=== PATIENT | male | born 1955 | race Caucasian/White ===

== ENCOUNTER 2016-04-04 21:17 | Inpatient (IN) | payer BC, OTHER ==
[2016-04-04] VITALS (18 sets, daily range): BP systolic 119–186; BP diastolic 71–123; PULSE 101–158; RESP 20–24; TEMP 98.4–98.6; O2SAT 91–96
[~2016-04-04] VITALS: Ht 172.7 cm; Wt 83.5 kg
[~2016-04-04 21:17] MED LIST: Z.0.NO CURRENT MEDS
[2016-04-04 21:43] LABS: AUTOMATED NEUTROPHIL # 9.1 TH/MM3 (1.8-7.7); BASOPHIL % 0.3 % (0.0-2.0); EOSINOPHIL # 0.1 TH/MM3 (0-0.4); EOSINOPHIL % 0.9 % (0.0-4.0); HEMO FLAGS DIFF FINAL; LYMPH % 22.5 % (9.0-44.0); LYMPHOCYTE # 2.9 TH/MM3 (1.0-4.8); MEAN CELL VOLUME 86.2 FL (80.0-100.0); MEAN CORPUSCULAR HEMOGLOBIN 29.4 PG (27.0-34.0); MEAN CORPUSCULAR HGB CONC 34.1 % (32.0-36.0); MONO % 6.9 % (0.0-8.0); NEUT % 69.4 % (16.0-70.0); PLATELET COUNT 216 TH/MM3 (150-450); RED BLOOD COUNT 5.22 MIL/MM3 (4.50-5.90); RED CELL DISTRIBUTION WIDTH 13.8 % (11.6-17.2)
[2016-04-04] MEDS ORDERED: SODIUM CHLORIDE 0.9% FLUSH 5 ML FLUSH IVF PRN (21:45)
[2016-04-04] MEDS ORDERED: ASPIRIN 81 MG CHEW TAB CHEW ONE (21:45)
[2016-04-04] MEDS ORDERED: NITROGLYCERIN 2% OINT 1 GM PACKET TOPICAL ONE (21:45)
[2016-04-04 22:00] LABS: APTT (PATIENT) 27.8 SEC (24.3-30.1); CHLORIDE 108 MEQ/L (98-107); INTERNATIONAL NORMALIZED RATIO 1.1 RATIO; POTASSIUM 3.5 MEQ/L (3.5-5.1); PROTHROMBIN TIME - PATIENT 12.5 SEC (9.8-11.6); SODIUM (NA) 143 MEQ/L (136-145)
[2016-04-04] MEDS ORDERED: FUROSEMIDE 40 MG/4 ML VIAL IV PUSH ONE ×2 (22:00→22:30)
[2016-04-04 22:03] LABS: ANION GAP 9 MEQ/L (5-15); BICARBONATE 25.9 MEQ/L (21.0-32.0); BLOOD UREA NITROGEN 20 MG/DL (7-18)
[2016-04-04 22:06] LABS: GLOMERULAR FILTRATION RATE 56 ML/MIN (>89)
[2016-04-04 22:09] LABS: CREATINE KINASE 131 U/L (39-308)
[2016-04-04] MEDS ORDERED: ENALAPRILAT 1.25 MG/ML VIAL IV PUSH ONE (22:15)
[2016-04-04 22:22] LABS: CKMB 2.7 NG/ML (0.5-3.6)
[2016-04-04] MEDS ORDERED: MORPHINE SULFATE 4 MG/ML INJ IV PUSH ONE (22:30)
[2016-04-04] MEDS ORDERED: NITROGLYCERIN-DEXTROSE INJ 250 ML IV SCH (22:30)
[2016-04-04] MEDS ORDERED: ONDANSETRON HCL 4 MG/2 ML VIAL IV PUSH ONE (22:30)
--- NOTE | 2016-04-04 22:30 | PD ---
HPI Chief Complaint: Respiratory Symptoms Time Seen by Provider: 21:34 Travel History International Travel<30 days: No Contact w/Intl Traveler<30days: No Traveled to known affect area: No History of Present Illness HPI 61-year-old male presents to the emergency department for complaint of 2 hours of shortness of breath. Patient reportedly noted approximate an hour before going to local urgent care that he had sudden onset shortness of breath. Patient would note that with standing upright shortness of breath of improvement was sitting or resting back or trying to lay down that his shortness of breath or worsen. No chest pain no referred neck jaw back shoulder arm pain no abdominal pain. No nausea no vomiting no diaphoresis. Patient recently returned within the past month from a cruise. There was no loss distance airplane flight patient was active during the cruise. Patient did have a respiratory illness will on the cruise was treated with antibiotic along with his at the same symptoms. Patient has had intermittent nighttime shortness of breath and respiratory issues recently. Patient denies any chronic medical conditions. Patient denies history of CAD, hypertension, dyslipidemia, diabetes, or tobaccoism. Patient denies any pain at this time, pain is 0/10 in intensity. Patient does feel short of breath. Patient sometimes feels like he has some soreness of his throat. Patient denies any new medications. Patient does have environmental allergen sensitivities and has been taking as needed Zyrtec. Patient has not noticed any lip tongue or throat swelling. There is been no change in his voice no stridor or hoarseness. No pruritus or urticaria. PFSH Past Medical History Cancer: Yes (Skin cancer L arm and head ) Tetanus Vaccination: > 5 Years Influenza Vaccination: No Social History Alcohol Use: Yes (1-2 beers weekly ) Tobacco Use: No Substance Use: No Allergies-Medications (Allergen,Severity, Reaction): Coded Allergies: No Known Allergies (Verified , 04/04/16) Reported Meds & Prescriptions Reported Meds & Active Scripts Active Physical Exam Narrative GENERAL: Well-developed well-nourished male and moderate respiratory distress able to complete full sentences and relate history. SKIN: Warm and dry. HEAD: Normocephalic. EYES: No scleral icterus. No injection or drainage. NECK: Supple, trachea midline. No JVD or lymphadenopathy. CARDIOVASCULAR: Increased Regular rate and rhythm without murmurs, gallops, or rubs. RESPIRATORY: Breath sounds equal bilaterally with basilar rales. No accessory muscle use. GASTROINTESTINAL: Abdomen soft, non-tender, nondistended. MUSCULOSKELETAL: No cyanosis, or edema. BACK: Nontender without obvious deformity. No CVA tenderness. Data Data Last Documented VS Vital Signs Date Time Temp Pulse Resp B/P Pulse Ox O2 Delivery O2 Flow Rate FiO2 04/05/16 00:10 104 20 111/73 94 Nasal Cannula 4 04/04/16 22:15 98.6 Orders Complete Blood Count With Diff (04/04/16 21:34) Basic Metabolic Panel (Bmp) (04/04/16 21:34) B-Type Natriuretic Peptide (04/04/16 21:34) D-Dimer (04/04/16 21:34) Act Partial Throm Time (Ptt) (04/04/16 21:34) Prothrombin Time / Inr (Pt) (04/04/16 21:34) Magnesium (Mg) (04/04/16 21:34) Ckmb (Isoenzyme) Profile (04/04/16 21:34) Troponin I (04/04/16 21:34) Iv Access Insert/Monitor (04/04/16 21:34) Electrocardiogram (04/04/16 21:34) Ecg Monitoring (04/04/16 21:34) Oximetry (04/04/16 21:34) Oxygen Administration (04/04/16 21:34) Sodium Chloride 0.9% Flush (Ns Flush) (04/04/16 21:45) Aspirin Chew (Aspirin Chew) (04/04/16 21:45) Nitroglycerin 2% Oint (Nitroglycerin 2% (04/04/16 21:45) Chest, Single Ap (04/04/16 ) Furosemide Inj (Lasix Inj) (04/04/16 22:00) CKMB (04/04/16 21:30) CKMB% (04/04/16 21:30) Enalaprilat Inj (Vasotec Inj) (04/04/16 22:15) Furosemide Inj (Lasix Inj) (04/04/16 22:30) Nitroglycerin-Dextrose Inj (Nitroglyceri (04/04/16 22:30) Morphine Inj (Morphine Inj) (04/04/16 22:30) Ondansetron Inj (Zofran Inj) (04/04/16 22:30) Diltiazem Inj (Cardizem Inj) (04/04/16 22:45) Diltiazem Inj (Cardizem Inj) (04/04/16 22:45) Blood Culture (04/04/16 22:37) Lactic Acid (04/04/16 22:37) Piperacil-Tazo 4.5 Gm Premix (Zosyn 4.5 (04/04/16 22:45) Sputum Culture And Gram Stain (04/04/16 22:48) Thyroid Stimulating Hormone (04/04/16 21:30) Ct Pulmonary Angiogram (04/05/16 ) Admit Order (Ed Use Only) (04/05/16 ) ^ Saline Lock (04/05/16 00:12) Resp Oxygen Mann C Titrat 1-4 L (04/05/16 ) ^ Notify Dr: Other (04/05/16 00:12) Sodium Chloride 0.9% Flush (Ns Flush) (04/05/16 09:00) Sodium Chloride 0.9% Flush (Ns Flush) (04/05/16 00:15) Labs Laboratory Tests Test 04/04/16 04/04/16 21:30 23:13 White Blood Count 13.0 TH/MM3 Red Blood Count 5.22 MIL/MM3 Hemoglobin 15.3 GM/DL Hematocrit 45.0 % Mean Corpuscular Volume 86.2 FL Mean Corpuscular Hemoglobin 29.4 PG Mean Corpuscular Hemoglobin 34.1 % Concent Red Cell Distribution Width 13.8 % Platelet Count 216 TH/MM3 Mean Platelet Volume 9.1 FL Neutrophils (%) (Auto) 69.4 % Lymphocytes (%) (Auto) 22.5 % Monocytes (%) (Auto) 6.9 % Eosinophils (%) (Auto) 0.9 % Basophils (%) (Auto) 0.3 % Neutrophils # (Auto) 9.1 TH/MM3 Lymphocytes # (Auto) 2.9 TH/MM3 Monocytes # (Auto) 0.9 TH/MM3 Eosinophils # (Auto) 0.1 TH/MM3 Basophils # (Auto) 0.0 TH/MM3 CBC Comment DIFF FINAL Differential Comment Prothrombin Time 12.5 SEC Prothromb Time International 1.1 RATIO Ratio Activated Partial 27.8 SEC Thromboplast Time D-Dimer Quantitative (PE/DVT) 1.38 MG/L FEU Sodium Level 143 MEQ/L Potassium Level 3.5 MEQ/L Chloride Level 108 MEQ/L Carbon Dioxide Level 25.9 MEQ/L Anion Gap 9 MEQ/L Blood Urea Nitrogen 20 MG/DL Creatinine 1.30 MG/DL Estimat Glomerular Filtration 56 ML/MIN Rate Random Glucose 122 MG/DL Calcium Level 8.3 MG/DL Magnesium Level 2.0 MG/DL Total Creatine Kinase 131 U/L Creatine Kinase MB 2.7 NG/ML Troponin I 0.02 NG/ML B-Type Natriuretic Peptide 646 PG/ML Thyroid Stimulating Hormone 2.980 uIU/ML 3rd Gen Lactic Acid Level 1.8 mmol/L [facility] Medical Decision Making Medical Screen Exam Complete: Yes Emergency Medical Condition: Yes Medical Record Reviewed: Yes Interpretation(s) EKG: sinus tachycardia Last Impressions CT Angiography 04/05/16 0000 Signed Impressions: Service Date/Time: Tuesday, April 05, 2016 00:34 - CONCLUSION: 1. No evidence of pulmonary embolism. 2. Scattered bilateral interstitial infiltrates in the mid to lower lung owen. 3. Small bilateral pleural effusions. 4. Gallstones in the gallbladder. No biliary tract obstruction. 5. 1.9 cm left adrenal mass. This most likely an adrenal adenoma. Bar Genao MD Chest X-Ray 04/04/16 0000 Signed Impressions: Service Date/Time: Monday, April 04, 2016 21:42 - CONCLUSION: 1. Mild congestive heart failure. Tony Puentes MD Differential Diagnosis dyspnea, chf, pulmonary edema, acs, mi, pneumonia, PE, htn-crisis Narrative Course Patient placed on cardiac care nurse IV access obtained EKG performed shows sinus tachycardia with regular rate and rhythm with P waves and no ST elevation or injury pattern change noted; supplemental oxygen administered Aspirin and Nitropaste administered; also ordered for administration of Lasix 40 mg as patient appears to be heart failure/pulmonary edema Patient remains hypertensive and ordered Vasotec 1.25 mg to be administered Patient remains hypertensive and dyspneic also diaphoretic therefore lab values pending patient administered IV nitroglycerin and additional Lasix 40 mg allergies no urine output after first 40 mg of Lasix administration; patient with posttussive sputum yellow purulent mucus. Patient remains afebrile no recent febrile illness or productive cough or respiratory illness however in view of yellow sputum for culture and lactic acid as well as Zosyn 4.5 g IVPB times one dose as recent antibiotic within the past 30 days Patient identified to have elevated d-dimer of 1.32 once patient status has improved will order CT pulmonary angiogram to exclude PE Cardiac enzymes resulted total CK and troponin I not elevated Nitropaste changed to IV nitroglycerin; patient to SVT of 156. Cardizem weight- based 0.25 mg/kg ordered with infusion Heart rate has decreased to 123 will give half dose 10 mg IV Cardizem no Cardizem infusion Patient clinically much improved and no longer complaining of shortness of breath but pressure and heart rate have normalized Patient's case discussed with on-call patternmaker pressure cast will accept patient for admission--per patternmaker pressure cast patient is to be admitted here as opposed to being transferred to [facility] Critical Care [facility] Aggregate critical care time was 45 minutes. Time to perform other separately billable procedures was not included in the critical care time. My time did not include minutes spent treating any other patients simultaneously or on activities that did not directly contribute to the patient's treatment. The services I provided to this patient were to treat and/or prevent clinically significant deterioration that could result in: Respiratory failure arrhythmia I provided critical care services requiring my management, as noted below: Chart data review, documentation time, medication orders and management, vital sign assessments/reviewing monitor data, ordering and reviewing lab tests, ordering and interpreting/reviewing x-rays and diagnostic studies, care of the patient and discussion of the patient with the admitting physicians. Physician Communication Physician Communication case discussed with Dr Rodrigues --will admit to his service to [facility] ICU Diagnosis Primary Impression: Pulmonary edema Additional Impression: Hypertensive CHF Admitting Information Admitting Physician Requests: Admit Melani Michelle MD Apr 04, 2016 22:30
[2016-04-04] MEDS ORDERED: PIPERACIL-TAZO 4.5 GM PREMIX 100 ML IV ONE (22:45)
[2016-04-04] MEDS ORDERED: DILTIAZEM INJ 125 MG in SODIUM CHLORIDE 0.9% INJ 100 ML IV SCH (22:45)
[2016-04-04] MEDS ORDERED: DILTIAZEM HCL 25 MG/5 ML VIAL IV PUSH ONE (22:45)
--- NOTE | 2016-04-04 22:53 | RADHPO ---
EXAM DATE/TIME: 04/04/2016 21:42 [facility] COMPARISON: No previous studies available for comparison. INDICATIONS : Short of breath. MEDICAL HISTORY : None. SURGICAL HISTORY : None. ENCOUNTER: Initial ACUITY: 1 day PAIN SCORE: 2/10 LOCATION: Bilateral chest FINDINGS: A single view of the chest demonstrates mild edema pattern. Cardiomegaly. Trace pleural fluid. No pne umothorax. CONCLUSION: 1. Mild congestive heart failure. Tony Puentes MD on April 04, 2016 at 22:51 Board Certified Radiologist. This report was verified electronically.
[2016-04-05] VITALS (24 sets, daily range): BP systolic 60–141; BP diastolic 42–89; PULSE 49–106; RESP 16–20; TEMP 97.7–98.7; O2SAT 92–100
[2016-04-05] MEDS ORDERED: SODIUM CHLORIDE 0.9% FLUSH 5 ML FLUSH IVF PRN (00:15)
[2016-04-05] MEDS ORDERED: IOHEXOL 350 MG/ML 10 ML VIAL (for RAD DIAG) IV ONE (00:46)
--- NOTE | 2016-04-05 01:00 | RADHPO ---
EXAM DATE/TIME: 04/05/2016 00:34 [facility] COMPARISON: No previous studies available for comparison. INDICATIONS : Evaluate for pulmonary embolism. Shortness of breath. IV CONTRAST: 75 cc Omnipaque 350 (iohexol) IV RADIATION DOSE: 19.63 CTDIvol (mGy) MEDICAL HISTORY : None SURGICAL HISTORY : None. ENCOUNTER: Initial ACUITY: 1 day PAIN SCALE: 0/10 LOCATION: chest TECHNIQUE: Volumetric scanning of the chest was performed using a pulmonary embolism protocol MIP images were re constructed. Using automated exposure control and adjustment of the mA and/or kV according to patien t size, radiation dose was kept as low as reasonably achievable to obtain optimal diagnostic quality images. FINDINGS: PULMONARY ARTERIES: No filling defects are seen in the pulmonary arteries through the segmental level. LUNGS: The upper lung owen are clear. However there are scattered interstitial infiltrates in the mid to l ower lung owen bilaterally. PLEURAE: There are small bilateral pleural effusions. MEDIASTINUM: There is good visualization of the great vessels of the middle mediastinum. No evidence of mediastin al or hilar adenopathy/mass. MUSCULOSKELETAL: Within normal limits for patient age. MISCELLANEOUS: There are gallstones in the gallbladder. There is a 1.9 x1.7 cm left adrenal mass. CONCLUSION: 1. No evidence of pulmonary embolism. 2. Scattered bilateral interstitial infiltrates in the mid to lower lung owen. 3. Small bilateral pleural effusions. 4. Gallstones in the gallbladder. No biliary tract obstruction. 5. 1.9 cm left adrenal mass. This most likely an adrenal adenoma. Bar Genao MD on April 05, 2016 at 0:55 Board Certified Radiologist. This report was verified electronically.
[2016-04-05 04:33] LABS: CREATINE KINASE 113 U/L (39-308)
[2016-04-05 04:46] LABS: CKMB 2.9 NG/ML (0.5-3.6)
[2016-04-05] MEDS ORDERED: POTASSIUM PHOSPHATE MONOBASIC 500 MG TAB PO PRN (06:45)
[2016-04-05] MEDS ORDERED: SODIUM PHOSPHATE INJ 30 MMOL in SODIUM CHLOR 0.9% 250 ML INJ 240 ML IV PRN (06:45)
[2016-04-05] MEDS ORDERED: RESP: ALBUTEROL 2.5 MG/IPRATROPIUM 0.5 MG NEB (PRN) INH (06:45)
[2016-04-05] MEDS ORDERED: MAGNESIUM SULFATE INJ 2 GM in SODIUM CHLORIDE 0.9% INJ 96 ML IV PRN (06:45)
[2016-04-05] MEDS ORDERED: MAGNESIUM SULFATE INJ 4 GM in SODIUM CHLORIDE 0.9% INJ 92 ML IV PRN (06:45)
[2016-04-05] MEDS ORDERED: MISCELLANEOUS NURSING INFORMATION XX SCH (06:45)
[2016-04-05] MEDS ORDERED: POTASSIUM CHLOR 40 MEQ PREMIX 100 ML IV PRN ×2 (06:45)
[2016-04-05] MEDS ORDERED: CHLORHEXIDINE GLUCONATE 2 % 1 PACK (2 CLOTHS) TOP PRN (06:45)
[2016-04-05] MEDS ORDERED: SODIUM CHLORIDE 0.9% FLUSH 5 ML FLUSH IV FLUSH PRN (06:45)
[2016-04-05] MEDS ORDERED: DEXTROSE 50% IN WATER 50 ML VIAL(D50) IV PUSH PRN (06:45)
[2016-04-05] MEDS ORDERED: POTASSIUM PHOSPHATE MONOBASIC 500 MG TAB PO/TUBE PRN (06:45)
[2016-04-05] MEDS ORDERED: POTASSIUM CL 40 MEQ/30 ML LIQ UDC PO/TUBE PRN ×2 (06:45)
[2016-04-05] MEDS ORDERED: ONDANSETRON HCL 4 MG/2 ML VIAL IV PRN (06:45)
[2016-04-05] MEDS ORDERED: MAGNESIUM OXIDE 400 MG TAB PO PRN (06:45)
[2016-04-05] MEDS ORDERED: POTASSIUM CHLOR 20 MEQ PREMIX 100 ML IV PRN ×2 (06:45)
[2016-04-05] MEDS ORDERED: POTASSIUM PHOSPHATE INJ 30 MMOL in SODIUM CHLOR 0.9% 250 ML INJ 250 ML IV PRN (06:45)
[2016-04-05] MEDS: INSULIN NovoLIN REGULAR SUPPLEMENTAL SCALE SQ SCH ×2 (07:00→11:00)
--- NOTE | 2016-04-05 07:26 | HHI.HP ---
HPI Service Critical Care Medicine Primary Care Physician Non-Staff Admission Diagnosis chf; htn Diagnosis: Chief Complaint: shortness of breath Travel History International Travel<30 Days: No Contact w/Intl Traveler <30 Da: No Traveled to Known Affected Are: No History of Present Illness This is a 61yM with no prior past medical history who presented to the [place] emergency department with acute on subacute shortness of breath. He reports that over the last few weeks he has been increasingly dyspneic, with a combination last night where he was significantly dyspneic. He has a history back in January of being on a month-long cruise and he and his both having a viral type syndrome with cough, fever, chills. Otherwise, prior to this subacute event, he is very healthy and active. He sees a Dr. regularly for checkups and has had no prior past medical history including no hypertension or hyperlipidemia. He denies nausea, vomiting, constipation, diarrhea, chest pain. Denies flushing, night sweats. He does endorse in the subacute time orthopnea, PND symptoms. Denies lower extremity swelling. In the emergency department, he had an elevated BNP 600, wbc 10k, significantly hypoxic on room air. also significantly hypertensive requiring nitro drip initially, which is now off. Because of his hypoxia, a CTA chest was ordered which was negative for acute PE, but did demonstrate pulmonary edema. He was given lasix iv with > 2L diuresis and is now on 2L NC on my evaluation, off nitroglycerine. Review of Systems Constitutional: DENIES: Diaphoretic episodes, Fatigue, Fever, Weight gain, Weight loss, Chills, Dizziness, Change in appetite, Night Sweats Endocrine: DENIES: Heat/cold intolerance, Polydipsia, Polyuria, Polyphagia Eyes: DENIES: Blurred vision, Diplopia, Eye inflammation, Eye pain, Vision loss , Photosensitivity, Double Vision Ears, nose, mouth, throat: DENIES: Tinnitus, Hearing loss, Vertigo, Nasal discharge, Oral lesions, Throat pain, Hoarseness, Ear Pain, Running Nose, Epistaxis, Sinus Pain, Toothache, Odynophagia Respiratory: COMPLAINS OF: Shortness of breath, DENIES: Apneas, Cough, Snoring , Wheezing, Hemoptysis, Sputum production Cardiovascular: COMPLAINS OF: Syncope, Dyspnea on Exertion, PND, Orthopnea, DENIES: Chest pain, Palpitations, Lower Extremity Edema, Claudication Gastrointestinal: DENIES: Abdominal pain, Black stools, Bloody stools, Constipation, Diarrhea, Nausea, Vomiting, Difficulty Swallowing, Anorexia Genitourinary: DENIES: Sexual dysfunction, Urinary frequency, Urinary incontinence, Urgency, Hematuria, Dysuria, Nocturia, Penile Discharge, Testicular Pain, Testicular Swelling Musculoskeletal: DENIES: Joint pain, Muscle aches, Stiffness, Joint Swelling, Back pain, Neck pain Integumentary: DENIES: Abnormal pigmentation, Nail changes, Pruritus, Rash Hematologic/lymphatic: DENIES: Bruising, Lymphadenopathy Immunologic/allergic: DENIES: Eczema, Urticaria Neurologic: DENIES: Abnormal gait, Headache, Localized weakness, Paresthesias, Seizures, Speech Problems, Tremor, Poor Balance Psychiatric: DENIES: Anxiety, Confusion, Mood changes, Depression, Hallucinations, Agitation, Suicidal Ideation, Homicidal Ideation, Delusions Past Family Social History Allergies: Coded Allergies: No Known Allergies (Verified , 04/04/16) Past Medical History None. Specifically no past medical history of hypertension, hyperlipidemia, coronary artery disease Past Surgical History Bilateral carpal tunnel surgery back in 1970s Reported Medications None. Active Ordered Medications See MAR Family History No family history of coronary artery disease or heart failure Social History 1-2 drinks a week. Never smoked. Denies any other drugs. Physical Exam Vital Signs Vital Signs Date Time Temp Pulse Resp B/P Pulse Ox O2 Delivery O2 Flow Rate FiO2 04/05/16 05:45 99 20 128/81 100 Nasal Cannula 3 04/05/16 05:30 18 97 Nasal Cannula 3 04/05/16 04:45 97.7 86 18 115/82 97 Nasal Cannula 4 04/05/16 03:45 92 20 137/84 98 Nasal Cannula 4 04/05/16 03:15 90 20 136/89 98 Nasal Cannula 4 04/05/16 02:15 92 20 141/87 98 Nasal Cannula 4 04/05/16 01:30 20 98 Nasal Cannula 04/05/16 01:15 98.4 98 20 137/89 98 Nasal Cannula 4 04/05/16 01:08 96 Nasal Cannula 4.00 04/05/16 00:45 106 20 139/73 96 Nasal Cannula 4 04/05/16 00:30 104 20 117/79 94 Nasal Cannula 4 04/05/16 00:10 104 20 111/73 94 Nasal Cannula 4 04/04/16 23:55 101 20 119/71 94 Nasal Cannula 4 04/04/16 23:45 106 20 131/75 94 Nasal Cannula 4 04/04/16 23:30 108 20 135/81 94 Nasal Cannula 4 04/04/16 23:15 108 22 152/87 94 Nasal Cannula 4 04/04/16 23:07 115 22 153/94 94 Nasal Cannula 4 04/04/16 23:02 115 22 186/102 94 Nasal Cannula 4 04/04/16 22:57 120 22 180/102 95 Nasal Cannula 4 04/04/16 22:52 126 22 168/108 94 Nasal Cannula 4 04/04/16 22:45 126 22 167/106 94 Nasal Cannula 4 04/04/16 22:40 126 24 151/114 94 Nasal Cannula 4 04/04/16 22:38 128 24 174/112 95 Nasal Cannula 4 04/04/16 22:30 158 22 173/117 94 Nasal Cannula 4 04/04/16 22:20 130 22 166/123 95 Nasal Cannula 4 04/04/16 22:15 98.6 126 24 173/114 95 Nasal Cannula 4 04/04/16 21:55 125 24 169/116 96 Nasal Cannula 4 04/04/16 21:47 124 20 163/111 96 Nasal Cannula 4 04/04/16 21:40 93 Nasal Cannula 4 04/04/16 21:35 20 93 Nasal Cannula 2 04/04/16 21:30 129 20 176/114 93 Nasal Cannula 2 181/121 04/04/16 21:30 93 Nasal Cannula 2 04/04/16 21:25 98.4 128 20 163/108 91 04/04/16 21:25 91 Nasal Cannula 2 Physical Exam GENERAL: Middle-aged male, lying in bed, no acute distress HEENT: Normocephalic, atraumatic. Pupils equally round and reactive. Mucous membranes are moist. NECK: Trachea is midline. JVD up to the mid neck. CHEST: Unlabored respirations. Equal chest rise. Clear to auscultation. CARDIOVASCULAR: Normal rate, regular rhythm. Laterally displaced PMI. S1, S2 with an S3. No appreciable murmurs. ABDOMEN: Soft, nontender, nondistended. No guarding. MUSCULOSKELETAL: Distal pulses 2+. No peripheral edema. NEUROLOGICAL: RASS 0. CAM -. GCS 15. Follows commands in all 4 extremities. No gross focal motor or sensory deficits. Laboratory Laboratory Tests Test 04/04/16 04/04/16 04/05/16 21:30 23:13 04:00 White Blood Count 13.0 Red Blood Count 5.22 Hemoglobin 15.3 Hematocrit 45.0 Mean Corpuscular Volume 86.2 Mean Corpuscular Hemoglobin 29.4 Mean Corpuscular Hemoglobin 34.1 Concent Red Cell Distribution Width 13.8 Platelet Count 216 Mean Platelet Volume 9.1 Neutrophils (%) (Auto) 69.4 Lymphocytes (%) (Auto) 22.5 Monocytes (%) (Auto) 6.9 Eosinophils (%) (Auto) 0.9 Basophils (%) (Auto) 0.3 Neutrophils # (Auto) 9.1 Lymphocytes # (Auto) 2.9 Monocytes # (Auto) 0.9 Eosinophils # (Auto) 0.1 Basophils # (Auto) 0.0 CBC Comment DIFF FINAL Differential Comment Prothrombin Time 12.5 Prothromb Time International 1.1 Ratio Activated Partial 27.8 Thromboplast Time D-Dimer Quantitative (PE/DVT) 1.38 Sodium Level 143 Potassium Level 3.5 Chloride Level 108 Carbon Dioxide Level 25.9 Anion Gap 9 Blood Urea Nitrogen 20 Creatinine 1.30 Estimat Glomerular Filtration 56 Rate Random Glucose 122 Calcium Level 8.3 Magnesium Level 2.0 Total Creatine Kinase 131 113 Creatine Kinase MB 2.7 2.9 Troponin I 0.02 0.02 B-Type Natriuretic Peptide 646 Thyroid Stimulating Hormone 2.980 3rd Gen Lactic Acid Level 1.8 Date/Time Procedure Status Source Growth 04/04/16 23:18 Aerobic Blood Culture Received Blood Peripheral Pending 04/04/16 23:18 Anaerobic Blood Culture Received Blood Peripheral Pending 04/04/16 22:59 Gram Stain Received Sputum Expectorated Sputum Pending 04/04/16 22:59 Sputum Culture Received Sputum Expectorated Sputum Pending Result Diagram: 04/04/16212904/04/162129 Imaging I performed a bedside critical care ultrasound which demonstrated severe global LV systolic dysfunction without regional wall motion abnormalities. His LV cavity was also dilated and to my estimation about 5.8 cm. Grossly preserved RV function. No pericardial effusion. No clinically significant valvular lesions. IVC was 2.8 cm without respiratory variation. Assessment and Plan Assessment and Plan Assessment: This is a 61-year-old male previously very healthy without any past medical history who presents with what appears to be a new onset cardiomyopathy , and by history could be viral in origin. I discussed case with Dr. Lu in cardiology. We will admit the patient to [facility] for further workup and evaluation. Plan: 1. Acute LV systolic congestive heart failure exacerbation -- Lasix 40mg iv bid -- goal 2L negative for 24h. 2. New-onset Cardiomyopathy -- possibly viral by history -- also has CT evidence of possible adrenal adenoma -- cardiology consulted -- start carvedilol 6.25mg po q12h -- start lisinopril 10mg po daily Work-up: -- formal 2d echo: pending. -- LHC/RHC: pending -- HIV: pending -- iron studies: pending -- AMARIS screen: pending -- 24h urine metanephrines: pending -- urine drug screen: pending -- TSH 2.98, free t4: pending -- Thiamine level: pending -- carnitine: pending 3. Hypertension -- carvedilol 6.25mg po q12h -- lisinopril 10mg po daily -- goal sbp < 160 initially. --Heart healthy diet as tolerated, NPO at midnight for possible procedures --senna/colace for bowel regimen. --SCDs, Lovenox 40 sq q24h for DVT prophylaxis --no indication for GI prophylaxis --telemetry. Dispo: transfer to [facility] for work-up of new cardiomyopathy. will admit to [facility]. no need for intensive care at the moment. will consult hospitalist services to assist. Code Status Full Code Discussed Condition With Dr. Aly Obregon,Mayo Uriarte MD Apr 05, 2016 07:26
[2016-04-05] MEDS: FUROSEMIDE 20 MG/2 ML VIAL IV PUSH SCH ×2 (08:42→17:57)
[2016-04-05] MEDS: LISINOPRIL 10 MG TAB PO SCH (08:43)
[2016-04-05] MEDS: SODIUM CHLORIDE 0.9% FLUSH 5 ML FLUSH IV FLUSH SCH ×2 (08:43→20:26)
[2016-04-05] MEDS: DOCUSATE SODIUM 50 MG/SENNA 8.6 MG TAB PO SCH ×2 (08:43→20:26)
[2016-04-05] MEDS: CARVEDILOL 6.25 MG TAB PO SCH ×2 (08:43→20:26)
[2016-04-05] MEDS: ENOXAPARIN SODIUM 40 MG/0.4 ML SYRINGE SQ SCH (08:43)
[2016-04-05] MEDS: SODIUM CHLORIDE 0.9% FLUSH 5 ML FLUSH IVF SCH ×2 (09:00→20:26)
[2016-04-05 09:19] LABS: ALKALINE PHOSPHATASE 82 U/L (45-117); ALT (GPT) 45 U/L (12-78); ANION GAP 9 MEQ/L (5-15); AST (GOT) 22 U/L (15-37); BICARBONATE 27.8 MEQ/L (21.0-32.0); BLOOD UREA NITROGEN 22 MG/DL (7-18); CHLORIDE 106 MEQ/L (98-107); GLOMERULAR FILTRATION RATE 61 ML/MIN (>89); INDIRECT BILIRUBIN 1.2 MG/DL (0.0-0.8); SODIUM (NA) 143 MEQ/L (136-145); TOTAL BILIRUBIN ADULT 1.5 MG/DL (0.2-1.0)
[2016-04-05 09:22] LABS: POTASSIUM 2.9 MEQ/L (3.5-5.1)
[2016-04-05 10:01] LABS: AMPHETAMINE, URINE NEG (NEG); BARBITURATES, URINE NEG (NEG)
[2016-04-05 10:02] LABS: COCAINE, URINE NEG (NEG)
[2016-04-05] MEDS ORDERED: DOPamine INJ PREMIX 500 ML IV SCH (10:30)
[2016-04-05] MEDS ORDERED: TERBUTALINE INJ 1 MG/ML AMP SQ PRN (10:30)
[2016-04-05] MEDS ORDERED: POTASSIUM CHLOR 20 MEQ PREMIX 100 ML IV ONE (11:00)
[2016-04-05] MEDS ORDERED: POTASSIUM CHLORIDE 20 MEQ CONTROLLED RELEASE TAB PO ONE (11:00)
[2016-04-05 13:39] LABS: FERRITIN 134 NG/ML (26-388); FREE T4 1.36 NG/DL (0.76-1.46); HDL CHOLESTEROL 48.6 MG/DL (40.0-60.0); LDL CHOLESTEROL 125 MG/DL (0-99); TRANSFERRIN IRON PROFILE 237 MG/DL (200-360)
--- NOTE | 2016-04-05 15:48 | EC ---
Study Study Date:04/05/2016 STUDY CONCLUSIONS SUMMARY - Left ventricle: The cavity size was normal. Wall thickness was normal. Systolic function was severely reduced. The estimated ejection fraction was in the range of 20% to 25%. Diffuse hypokinesis. - Mitral valve: Severe regurgitation. - Tricuspid valve: Mild regurgitation. - Pulmonary arteries: Systolic pressure was moderately increased. PA peak pressure: 52mm Hg (S). - Pericardium, extracardiac: There is a small pericardial effusion. If LV function is below 40, please consider prescribing an ACEI or ARB or document rationale for non-use. PROCEDURE DATA STUDY STATUS: Elective. Procedure: Transthoracic echocardiography. Image quality was fair. Scanning was performed from the parasternal, apical, and subcostal acoustic windows. Study completion: The patient tolerated the procedure well. Transthoracic echocardiography. M-mode, complete 2D, complete spectral Doppler, and color Doppler. Patient status: Inpatient. CARDIAC ANATOMY LEFT VENTRICLE: The cavity size was normal. Wall thickness was normal. Systolic function was severely reduced. The estimated ejection fraction was in the range of 20% to 25%. Diffuse hypokinesis. AORTIC VALVE: Trileaflet; normal thickness leaflets. Doppler: Transvalvular velocity was within the normal range. There was no stenosis. No regurgitation. AORTA: Aortic root: The aortic root was normal in size. MITRAL VALVE: Structurally normal valve. Doppler: Transvalvular velocity was within the normal range. There was no evidence for stenosis. Severe regurgitation. Valve area by pressure half-time: 3.19cm^2. LEFT ATRIUM: The atrium was at the upper limits of normal in size. RIGHT VENTRICLE: The cavity size was normal. Wall thickness was normal. PULMONIC VALVE: Doppler: Transvalvular velocity was within the normal range. There was no evidence for stenosis. No regurgitation. TRICUSPID VALVE: Structurally normal valve. Doppler: Transvalvular velocity was within the normal range. Mild regurgitation. PULMONARY ARTERY: The main pulmonary artery was normal-sized. Systolic pressure was moderately increased. RIGHT ATRIUM: The atrium was normal in size. PERICARDIUM: There is a small pericardial effusion. SYSTEMIC VEINS: Inferior vena cava: The vessel was normal in size. BASIC MEASUREMENTS ADULT Normal Left ventricle LV internal dimension, ED, chordal level, *55 mm 43-52 PLAX LV internal dimension, ES, chordal level, *49.2 mm 23-38 PLAX Fractional shortening, chordal level, PLAX *11 % >29 LV posterior wall thickness, ED 11.2 mm IVS/LVPW ratio, ED 0.85 <1.3 Ventricular septum Septal thickness, ED 9.53 mm Aortic valve Leaflet separation 18 mm 15-26 Right ventricle RV internal dimension, ED, PLAX 31.9 mm 19-38 BASIC MEASUREMENTS ADULT Normal Aortic valve Leaflet separation 18 mm 15-26 Aorta Root diameter, ED 32 mm 20-37 Left atrium Anterior-posterior dimension, ES *46 mm 19-40 LA/aortic root ratio 1.44 DOPPLER MEASUREMENTS ADULT Normal Main pulmonary artery Pressure, S *52 mm Hg =30 Mitral valve Pressure half-time 69 ms Valve area, pressure half-time 3.19 cm^2 Tricuspid valve Regurgitant peak velocity 323 cm/s Peak RV-RA gradient, S 42 mm Hg Maximal regurgitant velocity 323 cm/s Systemic veins Estimated CVP 10 mm Hg Right ventricle RV pressure, S *52 mm Hg <30 LEGEND: Mean values are shown as u=mean value. Asterisk (*) javier values outside specified normal range. Prepared and signed by Roula Chaudhari [id number]
--- NOTE | 2016-04-05 16:50 | EKG ---
Date Performed: 04/04/2016 Time Performed: 21:25:22 PTAGE: 61 years EKG: Sinus tachycardia Possible left atrial abnormality Poor R wave progression - probable fartun l variant Lateral ST-T changes are nonspecific Borderline ECG NO PREVIOUS TRACING DOCTOR: Roula Chaudhari Interpretating Date/Time 04/05/2016 16:48:51
--- NOTE | 2016-04-05 16:53 | EKG ---
Date Performed: 04/04/2016 Time Performed: 23:25:50 PTAGE: 61 years EKG: Regular supraventricular tachycardia Possible inferior infarct - age undetermined Lateral T wave changes may be due to myocardial ischemia Significant baseline artifact. Precluding any further any further interpretation. Repeat EKG suggested. Abnormal ECG PREVIOUS TRACING : 04/04/2016 21.25.22 DOCTOR: Roula Chaudhari Interpretating Date/Time 04/05/2016 16:51:36
[2016-04-06] VITALS (23 sets, daily range): BP systolic 89–124; BP diastolic 57–85; PULSE 1–98; RESP 13–22; TEMP 97.5–98.6; O2SAT 96–99
[2016-04-06] MEDS: CHLORHEXIDINE GLUCONATE 2 % 1 PACK (2 CLOTHS) TOP SCH (04:00)
[2016-04-06 05:22] LABS: HEMATOCRIT 39.6 % (39.0-51.0); MEAN CELL VOLUME 86.3 FL (80.0-100.0); MEAN CORPUSCULAR HEMOGLOBIN 29.8 PG (27.0-34.0); MEAN CORPUSCULAR HGB CONC 34.6 % (32.0-36.0); PLATELET COUNT 184 TH/MM3 (150-450); RED CELL DISTRIBUTION WIDTH 14.5 % (11.6-17.2); REVIEW FLAG FINAL
--- NOTE | 2016-04-06 05:48 | EKG ---
Date Performed: 04/05/2016 Time Performed: 10:18:32 PTAGE: 61 years EKG: BASELINE ARTIFACT PRESENT. Sinus rhythm with borderline 1st degree A-V block. Prolonged QT interval Possible anterior infarct - age undeterm ined Nonspecific ST-T wave changes Low QRS voltages in limb leads Abnormal ECG COMPARED TO PRIOR ELEC TROCARDIOGRAM, Both EKGs have significant artifact although it appears that the rate has slowed and S T-T wave changes have worsened. PREVIOUS TRACING : 04/04/2016 23.25 DOCTOR: Ab Kaba Interpretating Date/Time 04/06/2016 05:47:02
[2016-04-06 05:49] LABS: BICARBONATE 29.6 MEQ/L (21.0-32.0); POTASSIUM 3.5 MEQ/L (3.5-5.1)
[2016-04-06] MEDS: ENOXAPARIN SODIUM 40 MG/0.4 ML SYRINGE SQ SCH (08:00)
[2016-04-06] MEDS: DOCUSATE SODIUM 50 MG/SENNA 8.6 MG TAB PO SCH ×2 (09:00→20:50)
[2016-04-06] MEDS: SODIUM CHLORIDE 0.9% FLUSH 5 ML FLUSH IVF SCH ×2 (09:00→20:50)
--- NOTE | 2016-04-06 10:18 | HHI.PR ---
Subjective Remarks Patient seen in follow-up for acute systolic congestive heart failure, cardiomyopathy of unknown etiology, hypertension Patient reports that he is feeling well. He denies chest pain, no increase in shortness of breath, Awaiting heart catheterization. Objective Vitals Vital Signs Date Time Temp Pulse Resp B/P Pulse Ox O2 Delivery O2 Flow Rate FiO2 04/06/16 06:00 77 04/06/16 04:00 98.4 79 14 89/57 97 04/06/16 04:00 79 04/06/16 02:00 78 04/06/16 00:00 79 04/06/16 00:00 98.0 76 13 107/70 97 04/05/16 22:00 90 04/05/16 20:00 98.1 97 17 116/74 96 04/05/16 20:00 95 04/05/16 19:02 96 21 04/05/16 18:00 93 04/05/16 16:00 98.7 93 16 116/78 97 04/05/16 16:00 93 04/05/16 14:00 98 04/05/16 11:51 92 18 111/76 98 Nasal Cannula 3 04/05/16 10:56 81 18 96/68 96 Nasal Cannula 3 04/05/16 10:28 86 18 97/64 95 Nasal Cannula 3 04/05/16 10:17 49 18 60/42 92 Nasal Cannula 3 I/O 04/05/16 04/05/16 04/05/16 04/06/16 04/06/16 04/06/16 07:00 15:00 23:00 07:00 15:00 23:00 Intake Total 100 ml 0 ml 515 ml Output Total 2475 ml 750 ml 710 ml Balance -2375 ml -750 ml -195 ml Intake Oral 0 ml 500 ml IV Total 100 ml 15 ml Output Urine Total 2475 ml 750 ml 710 ml # Voids 4 1 # Bowel Movements 0 0 Result Diagram: 04/06/16 0431 04/06/16 [address] Angiography 04/05/16 0000 Signed Impressions: Service Date/Time: Tuesday, April 05, 2016 00:34 - CONCLUSION: 1. No evidence of pulmonary embolism. 2. Scattered bilateral interstitial infiltrates in the mid to lower lung owen. 3. Small bilateral pleural effusions. 4. Gallstones in the gallbladder. No biliary tract obstruction. 5. 1.9 cm left adrenal mass. This most likely an adrenal adenoma. Bar Genao MD Chest X-Ray 04/04/16 0000 Signed Impressions: Service Date/Time: Monday, April 04, 2016 21:42 - CONCLUSION: 1. Mild congestive heart failure. Tony Puentes MD Objective Remarks GENERAL: This is a well-nourished, well-developed patient, in no apparent distress. CARDIOVASCULAR: Normal rate and regular rhythm without murmurs, gallops, or rubs. RESPIRATORY: Good respiratory efforts. Breath sounds equal and clear to auscultation bilaterally. GASTROINTESTINAL: Abdomen soft, non-tender, non-distended. Normal active bowel sounds MUSCULOSKELETAL: Extremities without cyanosis, or edema. NEURO: Alert & Oriented x4 to person, place, time, situation. Moves all ext x4 PSYCH: Appropriate mood and affect. A/P Assessment and Plan 61-year-old male admitted with acute systolic congestive heart failure. Cardiomyopathy of unknown etiology. Pulmonary edema on admission. Acute systolic congestive heart failure: Patient has no known history of heart failure. He has been doing well until this hospitalization. 2-D echocardiogram shows LVEF of 20-25%. Severe mitral regurgitation, mild tricuspid regurgitation. There is increased pulmonary artery pressure and a mild pericardial effusion. -- Appreciate cardiology following. Continue Lasix 20mg iv bid. Consider transitioning to PO in AM. --Monitor I/O - He is responding well to the diuretics. New-onset Cardiomyopathy: Etiology unknown. No known history of CAD. Recent history of viral illness. Adrenal adenoma on CT - Cardiology following. Plan for heart catheterization today. -Patient was started on carvedilol 6.25mg po q12h Patient was started on lisinopril 10mg po daily Pending workup include: -- HIV: pending -- iron studies: pending -- AMARIS screen: pending -- 24h urine metanephrines: pending -- urine drug screen: Negative -- TSH 2.98, free t4: Normal -- Thiamine level: pending -- carnitine: pending Possible adrenal adenoma: - Workup as above. Outpatient follow up if workup unrevealing. Hypertension - Continue carvedilol 6.25mg po q12h, lisinopril 10mg po daily - Heart healthy diet DVT prophylaxis: SCDs, Lovenox 40 mg sq daily Discharge Planning Can transfer to [facility] after heart cath if stable. Abeba Stevens MD Apr 06, 2016 10:18
[2016-04-06] MEDS: FUROSEMIDE 20 MG/2 ML VIAL IV PUSH SCH ×2 (11:37→18:19)
[2016-04-06] MEDS: LISINOPRIL 10 MG TAB PO SCH (11:38)
[2016-04-06] MEDS: CARVEDILOL 6.25 MG TAB PO SCH ×2 (11:38→20:50)
[2016-04-06] MEDS: SODIUM CHLORIDE 0.9% FLUSH 5 ML FLUSH IV FLUSH SCH (11:38)
[2016-04-06] MEDS ORDERED: HEPARIN-NS/PF INJ 500 ML ONE (12:14)
[2016-04-06] MEDS ORDERED: VERAPAMIL HCL 5 MG/2 ML VIAL ONE (12:17)
[2016-04-06] MEDS ORDERED: HEPARIN SODIUM - IV 10,000 UNITS/10 ML VIAL ONE (12:17)
[2016-04-06] MEDS ORDERED: MIDAZOLAM HCL 2 MG/2 ML VIAL ONE (12:34)
[2016-04-06] MEDS ORDERED: VERAPAMIL HCL 5 MG/2 ML VIAL IV ONE (12:55)
[2016-04-06] MEDS ORDERED: NITROGLYCERIN 1000 MCG/5 ML VIAL IV ONE (12:55)
[2016-04-06] MEDS ORDERED: HEPARIN SODIUM - IV 10,000 UNITS/10 ML VIAL IV ONE (12:55)
[2016-04-06] MEDS ORDERED: MIDAZOLAM HCL 2 MG/2 ML VIAL IV ONE (13:00)
[2016-04-06] MEDS ORDERED: IOHEXOL 350 MG/ML 100 ML BTL (for Cath Lab) OTHER ONE (14:00)
[2016-04-06] MEDS ORDERED: SODIUM CHLORIDE 0.9% FLUSH 5 ML FLUSH IVF PRN (14:30)
[2016-04-06] MEDS ORDERED: MISC INFORMATION XX ONE (14:30)
--- NOTE | 2016-04-06 15:45 | MA ---
cc: BOOGIE RUIZ DO DATE: 04/06/2016 PROCEDURE Left heart catheterization, right heart catheterization, coronary angiogram, US guided venous access PREPROCEDURE DIAGNOSIS New onset acute heart failure, ejection fraction 20-25% POSTPROCEDURE DIAGNOSIS Nonischemic cardiomyopathy, ejection fraction 20-25%. MEDICATIONS 1. Verapamil 2.5 mg. 2. Heparin 3400 units. 3. Nitro 200 mcg. 4. Versed 1 mg. 5. Fentanyl 50 mcg. CONTRAST USED 70 ccs. FLUOROSCOPY 3.5 minutes. ESTIMATED BLOOD LOSS 10 ccs. PROCEDURAL SUMMARY Bernard Shankar is a pleasant 61-year-old male who originally presented to [facility] Emergency Room due to new onset shortness of breath. He was found to have new onset acute heart failure with an ejection fraction of 20-25%. Because of this new finding it was felt that significant coronary artery disease should be ruled out as well as pressure and sats of the right heart should be done. Risks, benefits and alternatives were explained to the patient and he consented as such. He was brought to the lab and prepped in the usual sterile fashion. Right radial artery was accessed using a modified Seldinger technique and placement of a 5/6 slender sheath. The right brachial vein was then accessed using a ultrasound guidance and a modified Seldinger technique. Placement of a 5/6 slender sheath. Both sheaths were easily aspirated and flushed. New Franken-Valeriano catheter was then advanced to a wedge position. Pressure and oxygen saturations were recorded in the usual fashion with hemodynamics below. New Franken-Valeriano catheter was then removed. The JR-4 was then advanced to the ascending aorta over a J-wire. This was used to cross the aortic valve into the left ventricle and pressures were recorded. JR-4 was then pulled back across the aortic valve showing no significant gradient of aortic stenosis. JR-4 catheter was then used for selective angiography of the right coronary artery which shows a 10-20% lesion in the mid section, and a 30% in the second posterior lateral branch. JR-4 was then exchanged for a JL-3.5. This was used for selective angiography of the left coronary system which shows a left main which appears normal in size with no significant disease. Left main bifurcates into an LAD and circumflex. LAD has a 20-30% lesion after the first diagonal. It does taper down distally and appears to be somewhat of a rudimentary artery versus the diagonal which covers a large portion of the anterior lateral wall. The circumflex gives off one major obtuse marginal and has no significant disease throughout. JL-3.5 was then removed over a J-wire. A TR band was placed across the radial sheath with 8 ccs of air and removal of the radial sheath. ACT was checked which was 173 and so the right brachial line was pulled and pressure held. The patient left the catheterization lab cardiovascularly stable. HEMODYNAMICS RV 33/9, RVEDP 11. PA 29/16, mean 22. Wedge 18. Cardiac output 4.9. Cardiac index 2.4. LV 101/18 with an LVEDP of 20. IMPRESSION 1. New onset acute heart failure, nonischemic cardiomyopathy with an ejection fraction of 20-25%. 2. 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 RECOMMENDATIONS 1. 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 2. He will be treated medically including starting beta blockade, NANCY inhibitors, aspirin and statin. 3. We will discuss with him the consideration of a Life-Vest due to his lowered ejection fraction. 4. He will need a repeat echo in 3 months with close follow up with cardiology. 5. If repeat echo shows a decrease in his ejection fraction consideration of ICD placement. Thank you for allowing me to see Bernard Shankar. If there are any questions please do not hesitate to call. Boogie Ruiz DO VGP/TLL /12:17 PM /3:29 PM .2 MTDSharad
[2016-04-06] MEDS: ASPIRIN 81 MG CHEW TAB CHEW SCH (15:51)
[2016-04-07] VITALS (8 sets, daily range): BP systolic 96–111; BP diastolic 62–86; PULSE 73–96; RESP 18; TEMP 97.4–98; O2SAT 94–98
[2016-04-07] MEDS: CHLORHEXIDINE GLUCONATE 2 % 1 PACK (2 CLOTHS) TOP SCH (03:28)
[2016-04-07 05:12] LABS: HEMATOCRIT 40.8 % (39.0-51.0); MEAN CELL VOLUME 86.3 FL (80.0-100.0); MEAN CORPUSCULAR HEMOGLOBIN 29.6 PG (27.0-34.0); MEAN CORPUSCULAR HGB CONC 34.3 % (32.0-36.0); PLATELET COUNT 198 TH/MM3 (150-450); RED BLOOD COUNT 4.74 MIL/MM3 (4.50-5.90); RED CELL DISTRIBUTION WIDTH 14.2 % (11.6-17.2); REVIEW FLAG FINAL
[2016-04-07 05:40] LABS: BICARBONATE 30.5 MEQ/L (21.0-32.0); POTASSIUM 3.2 MEQ/L (3.5-5.1)
--- NOTE | 2016-04-07 06:33 | MB ---
cc: JERRY RUIZ DO DATE OF CONSULTATION April 06, 2016 REASON FOR CONSULTATION Acute systolic heart failure. HISTORY OF PRESENT ILLNESS Bernard Shankar is a pleasant 61-year-old male who originally presented to the emergency room at [place] with subacute shortness of breath. He originally had a viral illness a few months ago and at that time noticed some shortness of breath. After getting over the viral illness he felt better. Then in February he and his were on a month-long cruise in the [facility] and they both came down with a viral illness. He started noticing the shortness of breath during this. He seemed to get over it once again. Over the past week he started noticing that he was more and more short of breath. He would noticed that while sitting or lying he would get extremely short of breath and would have to stand up. The day before coming in, he felt so extremely short of breath that he felt that he needed to come to the emergency room. On arrival to [place] he was found to have an elevated BNP and significantly hypoxic on room air. Bedside echo was done by Dr. Morales and he was found to have a severely reduced ejection fraction. At that time it was felt that he should undergo left and right heart catheterization and was transferred to [facility]. In seeing the patient, he has since been diuresed over 2 liters and he is currently comfortable lying in bed. He denies chest pain or shortness of breath. PAST MEDICAL HISTORY Denies. PAST SURGICAL HISTORY Bilateral carpal tunnel surgery (1970s). ALLERGIES No known drug allergies. MEDICATIONS Denies. FAMILY HISTORY Denies premature coronary artery disease or sudden cardiac within the family. SOCIAL HISTORY Has one to two drinks per week. Denies tobacco or drug abuse. REVIEW OF SYSTEMS Fourteen systems were reviewed including osteopathic pertinent positives and negatives above, otherwise negative. PHYSICAL EXAMINATION Vital Signs: Temperature 98.6, heart rate 89, blood pressure 120/75, respirations 16, pulse ox 99% on 2 liters. In General: The patient appears well, in no acute distress, alert, awake and oriented x 3. Extraocular muscles intact. Mucous membranes moist. Neck: Supple. No JVD at 45 degrees. No carotid bruits heard bilaterally. Carotid upstroke is brisk in nature. Heart: Regular rate and rhythm. Positive first and second heart sounds with no known murmurs, gallops or rubs. Lungs: Decreased breath sounds at bilateral bases with minimal rales. Abdomen: Soft, nontender, nondistended. No organomegaly noted. Extremities: No clubbing, cyanosis or edema. Femoral and distal pulses intact bilaterally. Neurologic: No focal deficits. Skin: Warm, dry and intact. Osteopathic Exam: No kyphoscoliosis, lordosis or paraspinal tender points. LABORATORY FINDINGS Hemoglobin 13.7, hematocrit 39.6, platelets 184. Potassium 3.5, BUN 21, creatinine 0.98. Troponin 0.02. ELECTROCARDIOGRAM (April 05, 2016 at 10:18) Sinus rhythm with borderline first degree AV block, prolonged QTC interval, nonspecific ST-T wave changes. IMPRESSION 1. Acute systolic heart failure thought to be possibly viral in nature due to his history, [place] Heart Association Class IV, AHA/ACC Stage C. 2. New onset cardiomyopathy. RECOMMENDATIONS 1. Bernard' history appears that he may have viral cardiomyopathy. Because of this, he should undergo left and right heart catheterization for both pressures to determine how well he has been diuresed but also to look at the coronary arteries to rule out significant coronary artery disease as a reversible cause for his cardiomyopathy. 2. He understands the risks, benefits and alternative and signs consent as such. 3. We will get a formal 2-D echo to look at his overall left ventricular function, cardiac structure and overall possible valvopathies. 4. Further workup for cardiomyopathy including HIV, iron studies, AMARIS, urine drug screen have all been negative. 5. Upon discharge he may need a LifeVest if his ejection fraction appears to be in the 20-25% range. 6. He will be placed on heart failure medication and needs close follow up with Cardiology. Thank you for allowing me to see Bernard Shankar. If there are any questions, please do not hesitate to call. Jerry Ruiz DO VGP/SSB /12:14 AM /6:14 AM
[2016-04-07] MEDS: FUROSEMIDE 20 MG/2 ML VIAL IV PUSH SCH (08:44)
[2016-04-07] MEDS: SODIUM CHLORIDE 0.9% FLUSH 5 ML FLUSH IVF SCH (08:45)
[2016-04-07] MEDS: DOCUSATE SODIUM 50 MG/SENNA 8.6 MG TAB PO SCH (08:45)
[2016-04-07] MEDS: CARVEDILOL 6.25 MG TAB PO SCH (08:45)
[2016-04-07] MEDS: LISINOPRIL 10 MG TAB PO SCH (08:45)
[2016-04-07] MEDS: ASPIRIN 81 MG CHEW TAB CHEW SCH (08:45)
[2016-04-07] MEDS ORDERED: POTASSIUM CHLORIDE 10 MEQ CONTROLLED RELEASE TAB PO ONE (09:45)
[2016-04-07] MEDS ORDERED: CARV6.25 PO (09:57)
[2016-04-07] MEDS ORDERED: POTA10TA8 PO (09:57)
[2016-04-07] MEDS ORDERED: LISI10TA3 PO (09:57)
[2016-04-07] MEDS ORDERED: Aspirin Chew CHEW (09:57)
--- NOTE | 2016-04-07 09:58 | HHI.DS ---
Discharge Summary Admission Date Apr 05, 2016 at 00:13 Discharge Date: Apr 07, 2016 Admitting Diagnosis chf; htn (1) Pulmonary edema ICD Code: J81.1 (2) CHF (congestive heart failure) ICD Code: I50.9 (3) Non-ischemic cardiomyopathy ICD Code: I42.8 Procedures Heart catheterization. Brief History - From Admission This is a 61yM with no prior past medical history who presented to the [place] emergency department with acute on subacute shortness of breath. He reports that over the last few weeks he has been increasingly dyspneic, with a combination last night where he was significantly dyspneic. He has a history back in January of being on a month-long cruise and he and his both having a viral type syndrome with cough, fever, chills. Otherwise, prior to this subacute event, he is very healthy and active. He sees a Dr. regularly for checkups and has had no prior past medical history including no hypertension or hyperlipidemia. He denies nausea, vomiting, constipation, diarrhea, chest pain. Denies flushing, night sweats. He does endorse in the subacute time orthopnea, PND symptoms. Denies lower extremity swelling. In the emergency department, he had an elevated BNP 600, wbc 10k, significantly hypoxic on room air. also significantly hypertensive requiring nitro drip initially, which is now off. Because of his hypoxia, a CTA chest was ordered which was negative for acute PE, but did demonstrate pulmonary edema. He was given lasix iv with > 2L diuresis and is now on 2L NC on my evaluation, off nitroglycerine. CBC/BMP: 04/07/16 0435 04/07/16 0435 Significant Findings Laboratory Tests Test 04/04/16 04/05/16 04/06/16 04/07/16 21:30 08:30 04:31 04:35 White Blood Count 13.0 TH/MM3 (4.0-11.0) Neutrophils # (Auto) 9.1 TH/MM3 (1.8-7.7) Prothrombin Time 12.5 SEC (9.8-11.6) D-Dimer Quantitative (PE/DVT) 1.38 MG/L FEU (0.00-0.50) Chloride Level 108 MEQ/L (98-107) Blood Urea Nitrogen 20 MG/DL (7-18) 22 MG/DL (7-18) 21 MG/DL (7-18) 24 MG/DL (7- 18) Estimat Glomerular Filtration 56 ML/MIN (>89) 61 ML/MIN (>89) 77 ML/MIN (>89) 80 ML/MIN (>89) Rate Random Glucose 122 MG/DL 175 MG/DL (74-106) (74-106) Calcium Level 8.3 MG/DL 8.0 MG/DL 8.3 MG/DL (8.5-10.1) (8.5-10.1) (8.5-10.1) B-Type Natriuretic Peptide 646 PG/ML (0-100) Potassium Level 2.9 MEQ/L 3.2 MEQ/L (3.5-5.1) (3.5-5.1) Total Bilirubin 1.5 MG/DL (0.2-1.0) Direct Bilirubin 0.3 MG/DL (0.0-0.2) Indirect Bilirubin 1.2 MG/DL (0.0-0.8) LDL Cholesterol 125 MG/DL (0-99) Imaging Last Impressions CT Angiography 04/05/16 0000 Signed Impressions: Service Date/Time: Tuesday, April 05, 2016 00:34 - CONCLUSION: 1. No evidence of pulmonary embolism. 2. Scattered bilateral interstitial infiltrates in the mid to lower lung owen. 3. Small bilateral pleural effusions. 4. Gallstones in the gallbladder. No biliary tract obstruction. 5. 1.9 cm left adrenal mass. This most likely an adrenal adenoma. Bar Genao MD Chest X-Ray 04/04/16 0000 Signed Impressions: Service Date/Time: Monday, April 04, 2016 21:42 - CONCLUSION: 1. Mild congestive heart failure. Tony Puentes MD PE at Discharge GENERAL: This is a well-nourished, well-developed patient, in no apparent distress. CARDIOVASCULAR: Normal rate and regular rhythm without murmurs, gallops, or rubs. RESPIRATORY: Good respiratory efforts. Breath sounds equal and clear to auscultation bilaterally. GASTROINTESTINAL: Abdomen soft, non-tender, non-distended. Normal active bowel sounds MUSCULOSKELETAL: Extremities without cyanosis, or edema. NEURO: Alert & Oriented x4 to person, place, time, situation. Moves all ext x4 PSYCH: Appropriate mood and affect. Pt update on day of discharge Patient reports that he is feeling great. No shortness of breath or chest pain. He is anxious to go home. Hospital Course 61-year-old male admitted with acute systolic congestive heart failure. Cardiomyopathy of unknown etiology on admission. Pulmonary edema on admission. Evaluation and treatment course detailed below: Acute systolic congestive heart failure: Patient has no known history of heart failure. He has been doing well until this hospitalization. 2-D echocardiogram shows LVEF of 20-25%. Severe mitral regurgitation, mild tricuspid regurgitation. There is increased pulmonary artery pressure and a mild pericardial effusion. -Patient was followed by cardiology. He was treated with IV diuretics. He responded well. He was put on heart failure medication as below. Given the low EF, the patient was fitted for LifeVest as well. He is discharge in stable condition to follow-up with cardiology outpatient. New-onset Cardiomyopathy: Based on the heart catheterization report and overall clinical picture, history and the fresco artist assessment, it appears the patient has a viral cardiomyopathy. No known history of CAD. Recent history of viral illness. Adrenal adenoma on CT -Patient was started on carvedilol 6.25mg po q12h Patient was started on lisinopril 10mg po daily Workup included: -- HIV: Negative -- iron studies: pending -- AMARIS screen: pending -- 24h urine metanephrines: pending -- urine drug screen: Negative -- TSH 2.98, free t4: Normal -- Thiamine level: pending -- carnitine: pending Possible adrenal adenoma: - Workup as above. Outpatient follow up if workup unrevealing. Hypertension - Continue carvedilol 6.25mg po q12h, lisinopril 10mg po daily - Heart healthy diet Patient is discharged in stable condition. He will follow up outpatient with cardiology. Pt Condition on Discharge: Good Discharge Disposition: Discharge Home Discharge Time: <= 30 minutes Discharge Instructions Follow up Referrals: Cardiology with Boogie Lu DO New Medications: Furosemide (Lasix) 20 Mg Tab 20 MG PO DAILY #30 Ref 0 TAB Potassium Chloride ER (Potassium Chloride CR) 10 Meq Tab 10 MEQ PO DAILY #30 TAB Carvedilol (Coreg) 6.25 Mg Tab 6.25 MG PO Q12HR #60 TAB Lisinopril (Lisinopril) 10 Mg Tab 10 MG PO DAILY #30 TAB ([Aspirin Chew]) 81 MG CHEW 81 MG CHEW DAILY #30 TAB.CHEW Abeba Stevens MD Apr 07, 2016 09:58
[2016-04-07] MEDS ORDERED: FURO1TAB62 PO (10:13)
--- NOTE | 2016-04-07 18:22 | PD.CARD.PN ---
Subjective Subjective Remarks Patient seen earlier, no chest pain, no shortness of breath Ambulating without oxygen Objective Medications Current Medications IV Flush (NS Flush) 2 ml UNSCH PRN IVF FLUSH AFTER USING IV ACCESS; Start 04/04 at 21:45; Stop 04/05/16 at 00:18; Status DC Aspirin (Aspirin Chew) 324 mg ONCE ONCE CHEW Last administered on 04/04/16 21 :47; Start 04/04/16 at 21:45; Stop 04/04/16 at 21:46; Status DC Nitroglycerin (Nitroglycerin 2% Oint) 1 inch ONCE ONCE TOPICAL Last administered on 04/04/16 21:47; Start 04/04/16 at 21:45; Stop 04/04/16 at 22:40 ; Status DC Furosemide (Lasix Inj) 40 mg ONCE ONCE IV PUSH Last administered on 04/04/16 22:02; Start 04/04/16 at 22:00; Stop 04/04/16 at 22:01; Status DC Enalaprilat (Vasotec Inj) 1.25 mg ONCE ONCE IV PUSH Last administered on 04/04 22:17; Start 04/04/16 at 22:15; Stop 04/04/16 at 22:16; Status DC Furosemide 40 mg 40 mg ONCE ONCE IV PUSH Last administered on 04/04/16 22:41 ; Start 04/04/16 at 22:30; Stop 04/04/16 at 22:31; Status DC Nitroglycerin/ Dextrose (Nitroglycerin-Dextrose Inj) 250 ml @ 0 mls/hr TITRATE IV Last administered on 04/04/16 22:33; Start 04/04/16 at 22:30; Stop at 13:54; Status DC Morphine Sulfate (Morphine Inj) 4 mg ONCE ONCE IV PUSH Last administered on 23:05; Start 04/04/16 at 22:30; Stop 04/04/16 at 22:31; Status DC Ondansetron HCl (Zofran Inj) 4 mg ONCE ONCE IV PUSH Last administered on 23:05; Start 04/04/16 at 22:30; Stop 04/04/16 at 22:31; Status DC Diltiazem HCl 22 mg 22 mg BOLUS ONCE IV PUSH Last administered on 04/04/16 22 :49; Start 04/04/16 at 22:45; Stop 04/04/16 at 22:46; Status DC Diltiazem HCl 125 mg/Sodium Chloride 125 ml @ 0 mls/hr TITRATE IV ; Start at 22:45; Stop 04/04/16 at 22:56; Status DC Piperacillin Sod/ Tazobactam Sod (Zosyn 4.5 Gm Premix) 100 ml @ 200 mls/hr ONCE ONCE IV Last administered on 04/04/16 23:39; Start 04/04/16 at 22:45; Stop 04/04/16 at 23:14; Status DC IV Flush (NS Flush) 2 ml BID IVF Last administered on 04/05/16 09:00; Start at 09:00; Stop 04/06/16 at 15:04; Status DC IV Flush (NS Flush) 2 ml UNSCH PRN IVF FLUSH AFTER USING IV ACCESS; Start 04/05 at 00:15; Stop 04/06/16 at 15:04; Status DC Iohexol (Omnipaque 350 Inj) 75 ml STK-MED ONCE IV Last administered on 00:46; Start 04/05/16 at 00:46; Stop 04/05/16 at 00:47; Status DC Magnesium Oxide 800 mg 800 mg UNSCH PRN PO For Magnesium 1.2 - 1.6 mg/dL; Start 04/05/16 at 06:45; Stop 04/06/16 at 21:40; Status DC Magnesium Sulfate 4 gm/Sodium Chloride 100 ml @ 50 mls/hr UNSCH PRN IV For Magnesium 0.9 - 1.1 mg/dL; Start 04/05/16 at 06:45; Stop 04/06/16 at 21:40; Status DC Magnesium Sulfate 2 gm/Sodium Chloride 100 ml @ 50 mls/hr UNSCH PRN IV For Magnesium 1.2 - 1.6 mg/dL; Start 04/05/16 at 06:45; Stop 04/06/16 at 21:40; Status DC Potassium Chloride 100 ml @ 50 mls/hr Q2H PRN IV For Potassium 2.8 - 3.2 mEq/ L Last administered on 04/05/16 10:01; Start 04/05/16 at 06:45; Stop 04/06/16 at 21:40; Status DC Potassium Chloride 100 ml @ 50 mls/hr Q2H PRN IV For Potassium 3.3 - 3.5 mEq/L ; Start 04/05/16 at 06:45; Stop 04/06/16 at 21:40; Status DC Potassium Chloride 100 ml @ 50 mls/hr Q2H PRN IV For Potassium 2.8 - 3.2 mEq/L ; Start 04/05/16 at 06:45; Stop 04/06/16 at 21:40; Status DC Potassium Chloride (KCl 40 Meq Premix Inj) 100 ml @ 25 mls/hr UNSCH PRN IV For Potassium 3.3 - 3.5 mEq/L; Start 04/05/16 at 06:45; Stop 04/06/16 at 21:40; Status DC Potassium Chloride (KCl 40 Meq/30 ml Liq) 40 meq UNSCH PRN PO/TUBE For Potassium 3.3 - 3.5 mEq/L; Start 04/05/16 at 06:45; Stop 04/06/16 at 21:40; Status DC Potassium Chloride (KCl 40 Meq/30 ml Liq) 40 meq UNSCH PRN PO/TUBE SEE LABEL COMMENTS; Start 04/05/16 at 06:45; Stop 04/06/16 at 21:40; Status DC Potassium Phosphate (K-Phos) 2,000 mg Q4H PRN PO For Phosphorus < 2.5 mg/dL; Start 04/05/16 at 06:45; Stop 04/06/16 at 21:40; Status DC Potassium Phosphate 2000 mg 2,000 mg UNSCH PRN PO/TUBE SEE LABEL COMMENTS; Start 04/05/16 at 06:45; Stop 04/06/16 at 21:40; Status DC Potassium Phosphate 30 mmol/ Sodium Chloride 260 ml @ 42 mls/hr UNSCH PRN IV SEE LABEL COMMENTS; Start 04/05/16 at 06:45; Stop 04/06/16 at 21:40; Status DC Sodium Phosphate/ Sodium Chloride (Sodium Phosphate Inj/NS 250 ml Inj) 250 ml @ 42 mls/hr UNSCH PRN IV For Phosphorus < 2.5 mg/dL; Start 04/05/16 at 06:45; Stop 04/06/16 at 21:40; Status DC Dextrose (D50w (Vial) Inj) 25 ml UNSCH PRN IV PUSH HYPOGLYCEMIA-SEE COMMENTS; Start 04/05/16 at 06:45; Stop 04/05/16 at 16:21; Status DC Insulin Human Regular (NovoLIN R SUPPLEMENTAL SCALE) 1 ACHS AND 3AM SQ ; Start 04/05/16 at 07:00; Stop 04/05/16 at 16:21; Status DC Furosemide (Lasix Inj) 20 mg BID@09,18 IV PUSH Last administered on 04/07/16 08:44; Start 04/05/16 at 09:00; Stop 04/07/16 at 13:54; Status DC IV Flush (NS Flush) 2 ml UNSCH PRN IV FLUSH FLUSH AFTER USING IV ACCESS; Start 04/05/16 at 06:45; Stop 04/06/16 at 15:04; Status DC IV Flush (NS Flush) 2 ml BID IV FLUSH Last administered on 04/06/16 11:38; Start 04/05/16 at 09:00; Stop 04/06/16 at 15:04; Status DC Ondansetron HCl (Zofran Inj) 4 mg Q6H PRN IV NAUSEA OR VOMITING; Start at 06:45; Stop 04/07/16 at 13:54; Status DC Senna/Docusate Sodium (Kristen-Colace) 2 tab BID PO Last administered on 08:45; Start 04/05/16 at 09:00; Stop 04/07/16 at 13:54; Status DC Albuterol/ Ipratropium (Duoneb Neb) 1 ampule Q2HR NEB PRN INH WHEEZING; Start 04/05/16 at 06:45; Stop 04/07/16 at 13:54; Status DC Enoxaparin Sodium (Lovenox Inj) 40 mg Q24H SQ Last administered on 04/05/16 08 :43; Start 04/05/16 at 08:00; Stop 04/06/16 at 15:05; Status DC Miscellaneous Information 1 Q361D XX ; Start 04/05/16 at 06:45; Stop 04/07/16 at 13:54; Status DC Chlorhexidine Gluconate (Chlorhexidine 2% Cloth) 3 pack Taper DAILY@04 TOP Last administered on 04/06/16 04:00; Start 04/06/16 at 04:00; Stop 04/07/16 at 13:54; Status DC Chlorhexidine Gluconate (Chlorhexidine 2% Cloth) 3 pack UNSCH PRN TOP HYGIENIC CARE; Start 04/05/16 at 06:45; Stop 04/07/16 at 13:54; Status DC Carvedilol (Coreg) 6.25 mg Q12HR PO Last administered on 04/07/16 08:45; Start 04/05/16 at 09:00; Stop 04/07/16 at 13:54; Status DC Lisinopril 10 mg 10 mg DAILY PO Last administered on 04/07/16 08:45; Start at 09:00; Stop 04/07/16 at 13:54; Status DC Dopamine HCl/ Dextrose (DOPamine INJ PREMIX) 500 ml @ 0 mls/hr TITRATE IV ; Start 04/05/16 at 10:30; Stop 04/07/16 at 13:54; Status DC Terbutaline Sulfate (Brethine Inj) 1 mg UNSCH PRN SQ For Extravasation; Start 04/05/16 at 10:30; Stop 04/07/16 at 13:54; Status DC Potassium Chloride 60 meq 60 meq ONCE ONCE PO Last administered on 04/05/16 11:11; Start 04/05/16 at 11:00; Stop 04/05/16 at 11:01; Status DC Potassium Chloride 100 ml @ 50 mls/hr ONCE ONCE IV ; Start 04/05/16 at 11:00; Stop 04/05/16 at 12:59; Status DC Heparin Sodium/ Sodium Chloride (Heparin-NS/Pf Inj) 500 ml @ As Directed STK- MED ONCE .ROUTE Last administered on 04/06/16 12:14; Start 04/06/16 at 12:14; Stop 04/06/16 at 12:15; Status DC Verapamil HCl (Isoptin Inj) 5 mg STK-MED ONCE .ROUTE Last administered on 12:17; Start 04/06/16 at 12:17; Stop 04/06/16 at 12:18; Status DC Heparin Sodium (Porcine) (Heparin Inj) 10,000 units STK-MED ONCE .ROUTE Last administered on 04/06/16 12:17; Start 04/06/16 at 12:17; Stop 04/06/16 at 12:18 ; Status DC Midazolam HCl (Versed Inj) 2 mg STK-MED ONCE .ROUTE Last administered on 12:34; Start 04/06/16 at 12:34; Stop 04/06/16 at 12:35; Status DC Fentanyl Citrate (fentaNYL INJ) 100 mcg STK-MED ONCE .ROUTE Last administered on 04/06/16 12:35; Start 04/06/16 at 12:35; Stop 04/06/16 at 12:36; Status DC Miscellaneous Information 1 ONCE ONCE XX Last administered on 04/06/16 14:30 ; Start 04/06/16 at 14:30; Stop 04/06/16 at 15:04; Status DC IV Flush (NS Flush) 2 ml BID IVF Last administered on 04/07/16 08:45; Start at 21:00; Stop 04/07/16 at 13:54; Status DC IV Flush (NS Flush) 2 ml UNSCH PRN IVF FLUSH AFTER USING IV ACCESS; Start 04/06 at 14:30; Stop 04/07/16 at 13:54; Status DC Aspirin (Aspirin Chew) 81 mg DAILY CHEW Last administered on 04/07/16 08:45; Start 04/06/16 at 14:30; Stop 04/07/16 at 13:54; Status DC Iohexol (OMNIPAQUE 350 INJ (Clinical Documentation Clerk)) 100 ml STK-MED ONCE OTHER ; Start at 14:00; Stop 04/06/16 at 14:44; Status DC Verapamil HCl (Isoptin Inj) 2.5 mg ONCE ONCE IV ; Start 04/06/16 at 12:55; Stop 04/06/16 at 15:16; Status DC Heparin Sodium (Porcine) (Heparin Inj) 3,400 units ONCE ONCE IV ; Start at 12:55; Stop 04/06/16 at 15:16; Status DC Nitroglycerin (Nitroglycerin Inj) 200 mcg ONCE ONCE IV ; Start 04/06/16 at 12: 55; Stop 04/06/16 at 15:16; Status DC Midazolam HCl (Versed Inj) 1 mg ONCE ONCE IV ; Start 04/06/16 at 13:00; Stop at 15:16; Status DC Fentanyl Citrate (fentaNYL INJ) 50 mcg ONCE ONCE IV ; Start 04/06/16 at 13:08; Stop 04/06/16 at 15:16; Status DC Potassium Chloride (KCl) 30 meq ONCE ONCE PO Last administered on 04/07/16t 12 :42; Start 04/07/16 at 09:45; Stop 04/07/16 at 09:46; Status DC Vital Signs / I&O Vital Signs Date Time Temp Pulse Resp B/P Pulse Ox O2 Delivery O2 Flow Rate FiO2 04/07/16 10:00 Room Air 2.00 21 04/07/16 08:00 98.0 90 18 111/66 98 04/07/16 06:00 73 04/07/16 05:00 73 04/07/16 04:00 76 04/07/16 04:00 97.4 87 18 100/86 94 04/07/16 04:00 Room Air 04/07/16 03:00 96 04/07/16 02:00 73 04/07/16 01:00 76 04/07/16 00:00 Room Air 04/07/16 00:00 80 04/07/16 00:00 97.7 80 18 96/62 95 04/06/16 23:00 89 04/06/16 22:00 88 04/06/16 22:00 88 04/06/16 21:55 Room Air 04/06/16 21:55 98.5 98 20 114/75 96 04/06/16 20:31 97 Nasal Cannula 2.00 04/06/16 20:00 81 04/06/16 20:00 97.5 86 18 104/68 97 I/O 04/06/16 04/06/16 04/06/16 04/07/16 04/07/16 04/07/16 07:00 15:00 23:00 07:00 15:00 23:00 Intake Total 515 ml 50 ml 480 ml 300 ml Output Total 710 ml 500 ml 600 ml Balance -195 ml -450 ml -120 ml 300 ml Intake Oral 500 ml 50 ml 480 ml 300 ml IV Total 15 ml 0 ml Output Urine Total 710 ml 500 ml 600 ml # Voids 2 # Bowel Movements 0 1 0 Physical Exam GENERAL: NAD, AAOx3 SKIN: Warm and dry. HEAD: Atraumatic. Normocephalic. EYES: Pupils equal and round. No scleral icterus. No injection or drainage. ENT: No nasal bleeding or discharge. Mucous membranes pink and moist. NECK: Trachea midline. No JVD. CARDIOVASCULAR: Regular rate and rhythm. RESPIRATORY: No accessory muscle use. Clear to auscultation. Breath sounds equal bilaterally. GASTROINTESTINAL: Abdomen soft, non-tender, nondistended. Hepatic and splenic margins not palpable. MUSCULOSKELETAL: Extremities without clubbing, cyanosis, or edema. No obvious deformities. NEUROLOGICAL: Awake and alert. No obvious cranial nerve deficits. Motor grossly within normal limits. Five out of 5 muscle strength in the arms and legs. Normal speech. PSYCHIATRIC: Appropriate mood and affect; insight and judgment normal. Laboratory Laboratory Tests Test 04/07/16 04:35 White Blood Count 10.0 TH/MM3 Red Blood Count 4.74 MIL/MM3 Hemoglobin 14.0 GM/DL Hematocrit 40.8 % Mean Corpuscular Volume 86.3 FL Mean Corpuscular Hemoglobin 29.6 PG Mean Corpuscular Hemoglobin 34.3 % Concent Red Cell Distribution Width 14.2 % Platelet Count 198 TH/MM3 Mean Platelet Volume 9.7 FL Sodium Level 141 MEQ/L Potassium Level 3.2 MEQ/L Chloride Level 103 MEQ/L Carbon Dioxide Level 30.5 MEQ/L Anion Gap 8 MEQ/L Blood Urea Nitrogen 24 MG/DL Creatinine 0.95 MG/DL Estimat Glomerular Filtration 80 ML/MIN Rate Random Glucose 85 MG/DL Calcium Level 8.3 MG/DL Assessment and Plan Problem List: (1) Non-ischemic cardiomyopathy (2) CHF (congestive heart failure) Assessment and Plan 1) No significant CAD on cardiac cath 2) Probable Viral/NICM cardiomyopathy 3) Lifevest fitting today 4) Will discharge on ASA/NANCY-I/Coreg 5) Will follow up in 2-3 weeks with me 6) Will weigh daily, if 2-3 pounds in 24 hours will start Boogie Bowen DO Apr 07, 2016 18:22
[2016-04-08 10:59] LABS: ACLYCARNITINE/FREE CARNITINE 0.4 (0.1-0.8); ACYLCARNITINE 13 nmol/mL (5-30); CARNITINE FREE 36 nmol/mL (25-54)
[2016-04-09 16:30] LABS: METANEPHRINE 24 COLLECTION DUR 24 h (())
== END 2016-04-07 13:53 | disposition home or self-care (01) | DRG 287 ==
LOC: PHED 21:17 → PHEDA 04-05 00:13 → PHEDH 04-05 04:13 → HIME 04-05 13:35 → HCIN 04-06 21:59
PROVIDERS: ADMIT Family Medicine; ATTEND Family Medicine
PROC: B2111ZZ Fluoroscopy of Multiple Coronary Arteries using Low Osmolar Contrast (ICD-10-PCS; 2016-04-06)
PROC: 4A023N8 Measurement of Cardiac Sampling and Pressure, Bilateral, Percutaneous Approach (ICD-10-PCS; principal; 2016-04-06 09:45)
DX: I50.21 Acute systolic (congestive) heart failure (principal); I08.1 Rheumatic disorders of both mitral and tricuspid valves; I10 Essential (primary) hypertension; B33.24 Viral cardiomyopathy; D35.00 Benign neoplasm of unspecified adrenal gland
CPT/HCPCS: 71010; 71275; 80048; 80061; 80076; 80307; 82379; 82550; 82552; 82728; 82810; 83540; 83550; 83605; 83735; 83835; 83880; 84425; 84439; 84443; 84484; 85002; 85025; 85027; 85379; 85610; 85730; 86038; 86703; 87040; 87070; 87205; 87641; 93005; 93306; 93456; 94150; 94640; 94667; 94668; 96365; 96366; 96375; C1769; C1893; J1644; J1650; J1940; J2250; J2270; J2405; J2543; J3010; J3480; Q9967

== ENCOUNTER 2016-08-09 11:02 | Day surgery (SDC) | payer BC ==
[~2016-08-09] VITALS: Ht 170.2 cm; Wt 83.0 kg
[~2016-08-09 11:02] MED LIST changes: +Aspirin Chew CHEW; +CARV6.25 PO; +FURO1TAB62 PO; +LISI10TA3 PO; +POTA10TA8 PO; -Z.0.NO CURRENT MEDS
[2016-08-09] MEDS ORDERED: NS 1000 ML IV SCH (12:00)
[2016-08-09] MEDS ORDERED: LORazepam 1 MG TAB SL SCH (12:00)
[2016-08-09] MEDS ORDERED: CHLORHEXIDINE GLUCONATE 2 % 1 PACK (2 CLOTHS) TOPICAL SCH (12:00)
[2016-08-09] MEDS ORDERED: ceFAZolin 2 GM PREMIX 50 ML IV SCH (12:00)
[2016-08-09] MEDS ORDERED: MUPIROCIN 2% OINT 1 APPLIC/GM SYR NASAL SCH (12:00)
[2016-08-09] MEDS ORDERED: INSULIN HUMAN REGULAR 1,000 UNITS/10 ML VIAL SQ PRN (12:00)
[2016-08-09] MEDS ORDERED: POVIDONE IODINE 5% (ANTISEPSIS KIT) 4 APPLICATIONS EACH NARE PRN (12:00)
[2016-08-09] MEDS ORDERED: METOPROLOL TARTRATE 25 MG TAB PO PRN (12:00)
[2016-08-09] MEDS ORDERED: LACTATED RINGER'S 1000 ML IV PRN (12:00)
[2016-08-09] MEDS ORDERED: SODIUM CHLORID 0.9% 500 ML IV PRN (12:00)
[2016-08-09] MEDS ORDERED: CHLORHEXIDINE GLUCONATE 2 % 1 PACK (2 CLOTHS) TOPICAL PRN (12:00)
[2016-08-09] MEDS ORDERED: POVIDONE IODINE 5% (ANTISEPSIS KIT) 4 APPLICATIONS EACH NARE SCH (12:00)
[2016-08-09] MEDS ORDERED: VANCOMYCIN 1000 MG/NS 250 ML IV SCH ×2 (12:00)
[2016-08-09 12:01] VITALS: BP 140/91; PULSE 77; RESP 18; TEMP 98.8; O2SAT 98
[2016-08-09] MEDS ORDERED: POTA10TA2 PO (12:02)
[2016-08-09] MEDS ORDERED: FURO20TA PO (12:02)
[2016-08-09] MEDS ORDERED: HYDR12.57 PO (12:02)
[2016-08-09 12:09] LABS: AUTOMATED NEUTROPHIL # 4.3 TH/MM3 (1.8-7.7); BASOPHIL % 0.4 % (0.0-2.0); EOSINOPHIL # 0.1 TH/MM3 (0-0.4); EOSINOPHIL % 1.8 % (0.0-4.0); HEMATOCRIT 45.1 % (39.0-51.0); HEMO FLAGS DIFF FINAL; LYMPHOCYTE # 1.9 TH/MM3 (1.0-4.8); MEAN CELL VOLUME 88.3 FL (80.0-100.0); MEAN CORPUSCULAR HGB CONC 32.9 % (32.0-36.0); NEUT % 60.8 % (16.0-70.0); PLATELET COUNT 192 TH/MM3 (150-450); RED BLOOD COUNT 5.11 MIL/MM3 (4.50-5.90); RED CELL DISTRIBUTION WIDTH 13.6 % (11.6-17.2); WHITE BLOOD COUNT 7.1 TH/MM3 (4.0-11.0)
[2016-08-09 12:19] LABS: APTT (PATIENT) 28.5 SEC (24.3-30.1); PROTHROMBIN TIME - PATIENT 11.5 SEC (9.8-11.6)
[2016-08-09 12:28] LABS: BICARBONATE 28.1 MEQ/L (21.0-32.0)
[2016-08-09] MEDS ORDERED: PROPOFOL 200 MG/20 ML AMP IV ONE (16:40)
[2016-08-09] MEDS ORDERED: HEPARIN-NS/PF INJ 500 ML ONE (16:55)
[2016-08-09] MEDS ORDERED: MIDAZOLAM HCL 2 MG/2 ML VIAL ONE (16:56)
[2016-08-09] MEDS ORDERED: ISOPROTERENOL HCL 1 MG/5 ML AMP ONE (17:08)
[2016-08-09] MEDS ORDERED: ceFAZolin INJ 1,000 MG VIAL ONE (17:10)
[2016-08-09] MEDS ORDERED: VANCOMYCIN 500 MG VIAL ONE (17:10)
[2016-08-09] MEDS ORDERED: VANCOMYCIN HCL 1000 MG VIAL ONE (17:10)
[2016-08-09] MEDS ORDERED: LIDOCAINE HCL 2% 50 ML VIAL ONE (17:11)
--- NOTE | 2016-08-09 17:46 | CATHPROC ---
[facility] HIS Report Study Information Study Number Scheduled Start Study Start [id number] 08/09/2016 Aug 09 2016 4:28PM Referring Institution Admit Source Facility Department 1 Other [facility] Physician and Clinical Staff Initial [place] Straightener Hand Gabriella Miller,MILITARY ADMINISTRATIVE TECHNICIAN TECH2 Straightener Hand Maria E Barker,RT(R) TECH2 Straightener Hand Miguel Krishnamurthy,RT(R) TECH2 Other Anesthesia, PIN DRAFTER Recorder Gertrude Lozano,BACILIO Scrub Castro Cline,RT(R) Procedures Performed Procedure Cardioversion Equipment Time Rougher For Cement Description Size Mfg Part Number Used/Scraped [id number] 16:30 [employer]ES PACK, CCL CUSTOM * Used *[id number] 16:30 [employer] PACER MIGUEL, LIMB * 2530 Used [id number] 16:30 [email or web address] BLANKET,WARM AIR CCL * Used *[id number] 17:06 [employer], JSN, QUAD FR 5 Used *[id number] 17:06 [employer], JSN, QUAD FR 5 Used *[id number] 17:06 [employer], JSN, QUAD FR 5 Used *[id number] 17:06 [employer] CATHE[employer], JSN, QUAD FR 5 Used *[id number] 17:06 [employer] SHEATH, EPS, FR5 FAST CATH FR 5 Used *[id number] 17:06 [employer] SHE[employer], EPS, FR5 FAST CATH FR 5 Used *[id number] 17:06 [employer] SHE[employer], EPS, FR5 FAST CATH FR 5 Used *[id number] 17:06 [employer] SHE[employer], EPS, FR6 FAST CATH FR 6 [id number] Used History: Allergies Allergy Reaction No Known Allergies History: Risk Factors Hypertension Previous Heart Failure Yes Yes Labs Hgb (g/dl) Hct (%) RBC (MIL/MM3) WBC (l/cumm) Platelets (thousands) 12.00-18.00 37.00-55.00 4.80-6.20 4.80-10.80 140.00-450.00 14.0 45 5.1 7.1 192 Glucose (mg/dl) BUN (mg/dl) Creatinine (mg/dl) BUN:Creatinine (1:x) 60.00-110.00 8.00-20.00 0.10-9.00 10.00-20.00 90 14 0.8 17.5 Na (meq/l) K (meq/l) 138.00-146.00 3.80-5.10 142 4 INR (PTT:PT) 0.50-2.00 1 Medication Medication Total Dose (Bolus/Oral) Medication Total Dosage/Unit 1% XYLOCAINE 40 mL Medications (Bolus/Oral) Medication Time Given Dosage/Unit Administered By Reason 1% XYLOCAINE 08/09/2016 5:12:34 PM 20 mL Miri Holliday 20 mL 1% XYLOCAINE given in lab by Miri Holliday in Right Groin via Subcutaneous. Ordered by Sun Holliday. 1% XYLOCAINE 08/09/2016 5:19:26 PM 20 mL Miri Holliday 20 mL 1% XYLOCAINE given in lab by Miri Holliday in Left Groin via Subcutaneous. Ordered by Dhiraj Holliday. Medication (Drip) Medication Time Given Dosage/Unit Concentration/Unit Diluent (ml) Solution ANCEF 08/09/2016 5:14:39 PM 1 g 1 g ANCEF given in lab by Anesthesia, PIN DRAFTER via Peripheral IV. Ordered by Miri Holliday. Reason: As pe r physicians verbal order. VANCOMYCIN DRIP 08/09/2016 5:15:57 PM 2 g 2 g VANCOMYCIN DRIP given in lab by Anesthesia, PIN DRAFTER via Peripheral IV. Ordered by Miri Holliday. [place] son: As per physicians verbal order. Chronological Log Time Study Chronological Log 16:40:43 Patient arrived via Bed. 16:40:44 Patient Name, D.O.B, / Armband Verified By R.N. 16:40:45 Consent signed by the physician and the patient and verified by the [facility] staff. 16:40:45 Pre-op and post- op instructions given; patient acknowledges understanding of instructions. 16:40:46 Verbal Stimulation=2 Physical Stimulation=2 Airway=2 Respiration=2 TOTAL=8. (0=absent, 1=li mited, 2=present) 16:40:47 Anesthesia at bedside. Assumes care of patient. 16:40:48 Patient has been NPO for More than 6Hrs. 16:40:49 Skin Breakdown- none per pt. 16:40:50 Patient Warmer Placed on the Table. 16:40:51 Disposable Defibrillator Pads Placed On Patient. 16:41:52 Lorin Prominences Protected 16:43:54 A # 20 IV was noted in the Antecubital (right). Grade = 0 0.9ns kvo 16:43:56 A # 20 IV was noted in the Antecubital (left). Grade = 0 0.9n kvo 16:44:59 History and physical on the chart or being dictated. 16:45:40 Table restraints applied according to hospital policy 16:56:21 Bovie ground pad applied to: 16:56:25 2% CHLORHEXIDINE GLUCONATE WASH AND NASAL SWIPE DONE PRIOR TO PROCEDURE. 16:59:41 Bilateral groins prepped with 2% chlorhexidine, and with a 3 min. waiting time. 17:04:51 Reference ECG taken 17:05:58 MD paged 17:06:33 MD responded 17:07:32 MD arrived. Time Out. Correct patient, procedure, procedure equipment, site and side verified with physicia n present. Time 17:12:00 concurred by MD, individual staff and PIN DRAFTER. Time Out #2 - Consents verified, patient in correct position, all results are labled and displa yed, safety precautions 17:12:19 taken, antibiotics administered. Time out concurred by MD, individual staff and PIN DRAFTER in procedu re 17:12:32 Case Start 17:12:34 20 mL 1% XYLOCAINE given in lab by Miri Holliday in Right Groin via Subcutaneous. Ordered b Miri Hanson. 17:12:48 Vascular access was obtained in the Fem Vein (right). 17:12:49 Vascular access was obtained in the Fem Vein (right). 1 g ANCEF given in lab by Anesthesia, PIN DRAFTER via Peripheral IV. Ordered by iMri Holliday. Reason: As per physicians 17:14:39 verbal order. 2 g VANCOMYCIN DRIP given in lab by Anesthesia, PIN DRAFTER via Peripheral IV. Ordered by Juany Holliday Reason: As per 17:15:57 physicians verbal order. 17:19:12 DB holding pressure on right fem site. 17:19:26 20 mL 1% XYLOCAINE given in lab by Miri Holliday in Left Groin via Subcutaneous. Ordered by Miya, Hanscy. 17:20:31 Vascular access was obtained in the Fem Vein (left). 17:20:34 Vascular access was obtained in the Fem Vein (left). 17:20:35 Vascular access was obtained in the Fem Vein (left). 17:20:40 Vascular access was obtained in the Fem Vein (left). 17:20:47 A SHEATH, EPS, FR5 FAST CATH FR 5 was advanced into the Fem Vein (left) using the Modified Seldinger technique. 17:20:56 A SHEATH, EPS, FR5 FAST CATH FR 5 was advanced into the Fem Vein (left) using the Modified Seldinger technique. 17:21:01 A SHEATH, EPS, FR5 FAST CATH FR 5 was advanced into the Fem Vein (left) using the Modified Seldinger technique. 17:21:10 A SHEATH, EPS, FR6 FAST CATH FR 6 was advanced into the Fem Vein (left) using the Modified Seldinger technique. A CATHETER, JSN, QUAD FR 5 was advanced vis Fem Vein (left) and placed in the CS. Placement wa s visually 17:24:07 confirmed under fluoroscopy. A CATHETER, JSN, QUAD FR 5 was advanced vis Fem Vein (left) and placed in the HIS. Placement w as visually 17:25:48 confirmed under fluoroscopy. A CATHETER, JSN, QUAD FR 5 was advanced vis Fem Vein (left) and placed in the RVA. Placement w as visually 17:25:59 confirmed under fluoroscopy. A CATHETER, JSN, QUAD FR 5 was advanced vis Fem Vein (left) and placed in the HRA. Placement w as visually 17:26:11 confirmed under fluoroscopy. 17:29:44 EPS in progress. 17:32:51 ECG rhythm of VT noted. Patient cardioverted at 200 joules. Success svt 17:41:13 Catheters removed without difficulty 17:43:55 No case complications noted. 17:43:56 Cine recording checked. 17:44:04 Sheaths removed; pressure applied to access sites by 17:45:00 Case End 17:45:10 NOTE: This patient is undergoing an additional procedure while still in the Cardiac Cath L ab. 17:45:30 Sterile dressing applied to right groin site. 17:55:50 Sterile dressing applied to site End Study - Maximum Contrast Load Max Contrast Load (mL) 534.4 End Study - Radiation Exposure Fluoro Time (minutes) 2.5 End Study - Sheaths Sheaths Pulled By Sheath Hold Time (min) Miguel Krishnamurthy 10 End Study - Patient Disposition Complications Transferred To Interventional Outcome No [facility] Holding successful
--- NOTE | 2016-08-09 18:41 | CATHPROC ---
[employer] (formerly [employer]) HIS Report Study Information Study Number Scheduled Start Study Start 1030-17 08/09/2016 Aug 09 2016 4:24PM Referring Institution Admit Source Facility Department 1 Other [facility] [address] - Vice President Of Finance Physician and Clinical Staff Initial [place] Gold Prospector Maria E Barker,RT(R) TECH2 Gold Prospector Miguel Krishnamurthy,RT(R) TECH2 Other Anesthesia, HANDBAG FINISHER Recorder Gertrude Lozano,BACILIO Scrub Castro Cline,RT(R) Procedures Performed Procedure Lead Insertion Equipment Time Sales Architect Description Size Mfg Part Number Used/Scraped DERMABOND, ADHESIVE SKIN [id number] 16:27 CORDIS/PACER * Used GLUE MINI *[id number] 16:27 MEDLINE INDUSTRIES SUTURE, STRIP PLUS 1/2" * Used *[id number] 16:27 MEDLINE PACER MIGUEL, LIMB * 2530 Used [id number] 16:27 MEDLINE PACER PACK, PACER CUSTOM * Used *[id number] 18:03 Domino PACER SAFE SHEATH, FR7, 13CM FR 7 [id number] Used 18:03 Domino PACER SAFE SHEATH, FR9, 13CM FR 9 [id number] Used 17:59 Needle Sponge Count 2 22 Used 17:58 Needle Sponge Count 20 200 Used 17:58 Needle Sponge Count 4 4 Used SUTURE, 0 ETHIBOND [CT1] (CX21D), 8pk SUTURE, 2-0 VICRYL [CT1] ([id number]) SUTURE, 2-0 VICRYL [CT1] (SOM945A) [id number] 16:27 [employer],WARM AIR CCL * Used *[id number] [facility] PAD, ELECTROSURGICAL 16:27 * [id number] Used SURGICAL GROUNDING ORANGE DEFIBRILLATOR, EVERA MRI XT 18:03 VITATRON MEDTRONIC DDE-DDDR [id number] Used DR LEAD, CAPSURE FIX NOVUS, [id number] 18:18 VITATRON MEDTRONIC 52CM Used 52CM *[id number] LEAD, SPRINT QUATTRO SECURE [id number] 18:12 VITATRON MEDTRONIC 62CM Used S 62CM *[id number] 18:02 VITATRON MEDTRONIC MONITOR, PACEMAKER\\ICD [id number] Used 16:27 ZOLL [employer] LUBNA. ELECTRODE, PRO-PADZ BIPHASIC * [id number] Used Equipment Model, Serial, Lot Number and Expiration Data Description Model Number Serial Number Lot Number Expiration Date DEFIBRILLATOR, EVERA MRI XT [id number] 10-07-2017 LEAD, CAPSURE FIX MITCHELL, 52CM 4076-52 [id number] 04-22-2018 LEAD, SPRINT QUCHAVAO SECURE S [id number] 12-02-2017 62CM History: Allergies Allergy Reaction No Known Allergies History: Risk Factors Hypertension Yes Labs Hgb (g/dl) Hct (%) RBC (MIL/MM3) WBC (l/cumm) Platelets (thousands) 12.00-18.00 37.00-55.00 4.80-6.20 4.80-10.80 140.00-450.00 14.0 45 5.1 7.1 192 Glucose (mg/dl) BUN (mg/dl) Creatinine (mg/dl) BUN:Creatinine (1:x) 60.00-110.00 8.00-20.00 0.10-9.00 10.00-20.00 90 14 0.8 17.5 Na (meq/l) K (meq/l) 138.00-146.00 3.80-5.10 142 4 INR (PTT:PT) 0.50-2.00 1 Medication Medication Total Dose (Bolus/Oral) Medication Total Dosage/Unit 2% XYLOCAINE 50 mL Medications (Bolus/Oral) Medication Time Given Dosage/Unit Administered By Reason 2% XYLOCAINE 08/09/2016 6:07:23 PM 50 mL Miri Holliday 50 mL 2% XYLOCAINE given in lab by Miir Holliday in Right upper chest via Subcutaneous. Ordered by Miri Smart. Final Case Assessment Cardiovascular HR Rhythm NIBP Chest Pain 95 sr 109/60 0 Edema Present Skin color Skin None Normal Warm Dry Circulatory - Lower Extremities Color Lower Right Color Lower Left Normal Normal Neurological State Lethargic Moves all extremities Respiration - General Respiration Rate SpO2 (%) O2 (lpm) (B/min) 16 97 4 Chronological Log Time Study Chronological Log 17:55:21 NOTE: This patient is undergoing an additional procedure while still in the Cardiac Cath L ab. 17:55:24 Initial procedure has been completed. Beginning additional procedure. 17:55:41 Anesthesia remains at bedside. Assuming care of patient. 17:55:50 Upper Chest Prepped Times Two. First Sponge And Instrument Count Done by Castro Cline RT(R). 17:58:10 Hypo's: 4, Sponges: 20, Bovie/scratch: 2 Sutures: 10, Blades: 1, Instruments: 26, Syveck Patches: 0 verfied with MM 18:01:26 Reference ECG taken Time Out. Correct patient, procedure, procedure equipment, site and side verified with physicia n present. Time 18:07:00 concurred by MD, individual staff and HANDBAG FINISHER. Time Out #2 - Consents verified, patient in correct position, all results are labled and displa yed, safety precautions 18:07:14 taken, antibiotics administered. Time out concurred by MD, individual staff and HANDBAG FINISHER in procedu re 18:07:19 Case Start 18:07:23 50 mL 2% XYLOCAINE given in lab by Miri Holliday in Right upper chest via Subcutaneous. Ord ered by Miri Holliday. 18:09:11 Vascular access was obtained in the Subclav. Vein (Rt). 18:10:19 Vascular access was obtained in the Subclav. Vein (Rt). 18:10:25 Wire inserted 18:10:26 Wire inserted 18:10:35 Surgical Incision Made. 18:10:40 A SAFE SHEATH, FR9, 13CM FR 9 was advanced into the Subclav. Vein (Rt) using the Modified S eldinger technique. 18:14:52 Lead placement verified under fluoroscopy 18:15:25 The RV lead impedance and threshold being tested. 18:18:51 The RV lead was sutured to the fascia. 18:23:08 A SAFE SHEATH, FR7, 13CM FR 7 was advanced into the Subclav. Vein (Rt) using the Modified S eldinger technique. 18:23:22 A LEAD, CAPSURE FIX NOVUS, 52CM 52CM was inserted and positioned in the RA. 18:23:43 Lead placement verified under fluoroscopy 18:23:45 The Atrial lead impedance and threshold is being tested. 18:23:54 Pocket flushed with antibiotic solution 18:24:10 The Atrial lead was sutured to the fascia. 18:25:42 A DEFIBRILLATOR, EVERA MRI XT DR DDE-DDDR was connected and placed in the pocket. Second Sponge And Instrument Count Done by Castro Cline RT(R). 18:26:29 Hypo's: 4, Sponges: 20, Bovie/scratch: 2 Sutures: 10, Blades: 1, Instruments: 26, Syveck Patches: 0 verfied with MM 18:32:06 The pocket was closed. 18:32:09 Implant Procedure was performed. 18:32:16 A ICD Implant . (Dual) 18:34:59 CICU called. Spoke to Coral 18:35:10 Bedside Report will be given. Final Sponge And Instrument Count Done by Castro Cline RT(R). 18:35:41 Hypo's: 4, Sponges: 20, Bovie/scratch: 2 Sutures: 10, Blades: 1, Instruments: 26, Syveck Patches: 0 verfied with MM 18:36:01 Steri-strips and a sterile dressing applied to site. 18:36:27 No case complications noted. 18:36:28 Cine recording checked. 18:36:29 Case End 18:36:32 Defibrillator and ground pads removed. Skin intact. Assessment: Final Case, HR=95 BPM, Rhythm=sr, GZVD=877/60 mmhg, Chest Pain=0, Edema=None, [place] r=Normal, Skin = Warm, Dry Lower Right Extremities: Color=Normal 18:36:37 Lower Left Extremities: Color=Normal Neurological: State=Lethargic, PELAEZ Respiration: Resp=16 B/min, SpO2=97 %, O2=4 lpm 18:40:17 A sling was placed on the affected arm. 18:47:34 Patient moved to stretcher End Study - Contrast Media Used In Study Contrast Total Opened (mL) Total Used (mL) Total Wasted (mL) Unspecified 0 0 0 End Study - Maximum Contrast Load Max Contrast Load (mL) 534.4 End Study - Radiation Exposure Fluoro Time (minutes) 4.6 End Study - Patient Disposition Complications Transferred To Interventional Outcome No Telemetry Bed successful
--- NOTE | 2016-08-09 18:57 | PD.CARD ---
DUAL CHAMBER DEFIB IMPLANT PROCEDURE DATE: August 09, 2016 NYHA Classification: Class II (Mild) Prevention: Primary Dual Chamber Defib Mr. Shankar is a 61-year-old male with congestive heart failure, cardiomyopathy, ejection fraction 30%, on optimal medical management. Previous defib vest, who undergo dual-chamber defibrillator implantation and device testing. The risks, the nature and the benefit of the procedure were clearly stated to his . The risks include pneumothorax, cardiac perforation, stroke, and even . He understood and agreed to proceed. This is primary prevention. Patient has an episode of atrial fibrillation requiring DC cardioversion during EP study. Atrial lead necessary for atrial arrhythmia monitoring. PROCEDURE As written informed consent was obtained prior to electrophysiology study, the patient was kept on the table where he was prepared and draped in the usual sterile fashion. Conscious sedation was initiated and maintained throughout the procedure by the anesthesiologist. Once sedation was verified, the right infraclavicular area was anesthetized with 2% Xylocaine. Using modified Seldinger, the right subclavian vein was cannulated on two occasions and two guidewires were advanced. Then, using #11 blade scalpel, a 3 centimeter incision was made two fingerbreadths below the clavicle. Dissection was then taken down to deep fascial layer using Bovie cautery and blunt dissection. Into the inferomedial direction, a device pocket was dissected. Then the wires were dissected into the pocket. A 2-0 Vicryl suture was placed around the wires to prevent back-bleeding. At this point, over the lateral wire, a 9-Macedonian dilator and introducer was advanced. As the dilator and wire were removed, an active fixation right ventricular pacing, sensing and defibrillatory lead was advanced. After adequate pacing and sensing thresholds were obtained, the lead was secured in the pocket using #2 Ethibond suture. Then, over the remaining wire, a 7-Macedonian dilator introducer was advanced. As the dilator and wire were removed, an active fixation right atrial pacing and sensing lead was advanced. After adequate pacing and sensing thresholds were obtained, the lead was secured in the pocket using #2 Ethibond suture. At that point, the pocket was copiously irrigated with antibiotic solution. The leads were connected to the generator and placed in the pocket. I did not test the device because of blood pressure. I did proceed with wound closure. The deep fascial layer was approximated using 2-0 Vicryl suture in a continuous fashion. The subcutaneous layer was approximated using 2-0 Vicryl suture in a continuous fashion. The subcuticular layer was approximated with 2-0 Vicryl suture in a continuos fashion. Dermabond adhesive was applied to the wound followed by a sterile pressure dressing. There was no complication. The patient tolerated procedure. Blood loss minimal. IMPLANTED HARDWARE The implanted defibrillator generator is a Medtronic model number [id number], serial number [id number]. The right atrial pacing and sensing lead is a Medtronic model number 4076-52, serial number [id number]. The right ventricular pacing, sensing defibrillatory lead is a Medtronic model number 6935M-62. serial # [id number]. THRESHOLDS The right atrial pacing threshold in bipolar mode was 1.4 volts at 0.5 milliseconds. Lead impedance 855 ohms and P wave at 2.8 millivolts. The right ventricular pacing threshold in bipolar mode was 0.75 volts at 0.4 milliseconds. Lead impedance 513 ohms and R wave at 5.6 millivolts. SETTINGS The device set in a DDD-50 upper limit 120 beats per minute. Defibrillatory portion for two zones, one zone for ventricular tachycardia between 170 to 250 beats per minute. Initial therapy consists of one burst of ATP, one ramp, 81%, 10 pulse, 10 second decremental, followed by a 20, then 25 and all subsequent shocks at 35-joules defibrillatory shock. The second zone for ventricular fibrillation above 250 beats, first therapy at 25 and all subsequent shocks at 35-joules defibrillatory shock. CONCLUSIONS Successful defibrillator implantation. COMMENT AND RECOMMENDATIONS The patient will be transferred to telemetry unit. He will be observed. Miri Holliday MD August 09, 2016 18:57
[2016-08-09 19:00] VITALS: BP 152/96; PULSE 69; RESP 16; TEMP 97.7; O2SAT 98
[2016-08-09] MEDS ORDERED: SODIUM CHLOR 0.9% 250 ML INJ 250 ML IV PRN (19:15)
[2016-08-09] MEDS ORDERED: LORazepam 2 MG/ML VIAL IV PRN (19:15)
[2016-08-09] MEDS ORDERED: ATROPINE SULFATE 1 MG/ML VIAL IV PRN (19:15)
[2016-08-09] MEDS ORDERED: TEMAZEPAM 15 MG CAP PO PRN (19:15)
[2016-08-09] MEDS ORDERED: oxyCODONE/ACETAMINOPHEN 5 MG/325 MG TAB PO PRN ×2 (19:15)
[2016-08-09] MEDS ORDERED: METOCLOPRAMIDE HCL 10 MG/2 ML VIAL IV PRN (19:15)
[2016-08-09] MEDS ORDERED: ONDANSETRON HCL 4 MG/2 ML VIAL IV PRN ×2 (19:15)
[2016-08-09] MEDS ORDERED: LIDOCAINE HCL 1% 50 ML VIAL INFIL PRN (19:15)
[2016-08-09] MEDS ORDERED: BACITRACIN OINT 0.9 GM PKT TOP ONE (19:45)
--- NOTE | 2016-08-09 20:04 | MA ---
cc: RONNA GUO M.D. DATE 08/09/2016 Electrophysiology study and CS cannulation INDICATION Mr. Shankar is a 61-year-old gentleman congestive heart failure, cardiomyopathy, ejection fraction 30% on optimal medical treatment for the past 3-4 months, previous defibrillatory vest referred for electrophysiology study and defibrillator implanted for sudden prevention. The risks, the nature and the benefit of the procedure are clearly stated to him. The risks include pneumothorax, cardiac perforation, stroke and even . The patient understood and agreed to proceed. PROCEDURE After written informed consent was obtained, the patient was brought to the EP lab where he was prepped and draped in the usual sterile fashion. Conscious sedation was initiated and maintained throughout the procedure by anesthesiologist. Once sedation verified, the right inguinal area was anesthetized with 2% Xylocaine. I did attempt to cannulate the right femoral vein, I was unable. I switched to the left femoral vein. The left inguinal area was anesthetized with 2% Xylocaine. Using modified Seldinger technique, the left femoral vein was cannulated on four occasions and four guidewires were advanced. Over the wires three 5 and a 6-Marshallese Hemaquet were advanced. Then under fluoroscopic guidance through the 5 and 6-Marshallese Hemaquet, four 5-Marshallese Katrina curved quadripolar electrophysiology catheters were advanced and positioned on the His, upper right atrium. coronary sinus and right ventricular apex. Basic interval was measured. They were within normal limits. At this point atrial pacing protocol was performed. Atrial pacing protocol consisted of incremental atrial pacing as well as programmed stimulation with ____ cycle length and up to one extra stimuli delivered. During atrial pacing protocol atrial fibrillation was induced. The patient was observed on the table and continued in atrial fibrillation. He was cardioverted with a 200 sync biphasic joule into sinus rhythm. Then atrial pacing protocol was continued. Again there is some supraventricular tachyarrhythmia induced. It was self-limited. Then ventricular pacing protocol was performed. There was no VA conduction. During ventricular pacing protocol multiple episodes of self-limited ventricular tachyarrhythmia was induced. At that point procedure was complete. The patient's blood pressure was low. I decided not to use Isuprel. All catheters and Hemaquet were removed. The patient going to be kept on the table and a dual-chamber defibrillator will be implanted for sudden prevention and atrial arrhythmia monitoring. No incident to report. The patient tolerated the procedure. Blood loss minimal. IMPRESSION 1. Electrocardiogram. At baseline the patient was in sinus. Postprocedure electrocardiogram was unchanged. 2. Basic interval. Base cycle length was 680 milliseconds. AH at 140 and HV at 76 milliseconds. 3. Atrial pacing protocol. Wenckebach of the node was around 300 milliseconds. ERP of the nose 600, 300 milliseconds. No tachyarrhythmia was induced. 4. Ventricular pacing protocol. There was no VA conduction. No sustained tachyarrhythmia was induced. CONCLUSION 1. Negative electrophysiology study for supraventricular tachyarrhythmia. 2. Infra His disease. COMMENT AND RECOMMENDATIONS The patient going to kept on the table. Ejection fraction is 30% on optimal medical treatment, high risk for sudden . A dual-chamber defibrillator will be implanted for sudden primary prevention. MD KANDICE Stahl/PRAVEEN /7:01 PM /7:38 PM
--- NOTE | 2016-08-09 20:05 | RADRPT ---
EXAM DATE/TIME: 08/09/2016 19:31 [place] COMPARISON: CHEST SINGLE AP, April 04, 2016, 21:42. INDICATIONS : Pneumothorax. Post pacemaker. MEDICAL HISTORY : Hypertension. SURGICAL HISTORY : Pacemaker. ENCOUNTER: Initial ACUITY: 1 day PAIN SCORE: 5/10 LOCATION: Bilateral chest FINDINGS: A single portable frontal view the chest shows a right-sided pacing device. Leads terminate in the re gion of right atrium and right ventricle respectively. Heart is enlarged. No discrete infiltrate, eff usion, or pneumothorax. Bony structures are unremarkable. CONCLUSION: 1. Right-sided pacing device. No pneumothorax. Cardiomegaly. Bernardo Morales Jr., MD on August 09, 2016 at 20:02 Board Certified Radiologist. This report was verified electronically.
[2016-08-09 21:00] VITALS: PULSE 74
[2016-08-09 22:00] VITALS: PULSE 68
[2016-08-09 23:00] VITALS: BP 121/64; PULSE 74; PULSE 83; RESP 12; TEMP 97.3; O2SAT 96
[2016-08-10] VITALS (10 sets, daily range): BP systolic 97–100; BP diastolic 60–65; PULSE 64–98; RESP 12–18; TEMP 97.8; O2SAT 98
[2016-08-10] MEDS: ceFAZolin 2 GM PREMIX 50 ML IV SCH ×2 (00:01→06:30)
[2016-08-10] MEDS ORDERED: CEPH-459 PO (08:07)
--- NOTE | 2016-08-10 08:11 | PD.CARD.PN ---
Subjective Subjective Remarks Feels okay. Objective Medications Current Medications Medications (Trade) Dose Ordered Sig/Iglesia Route Start Time Stop Time Status Last Admin Sodium Chloride 1,000 ml @ 30 mls/hr Q24H IV 08/09/16 12:00 Lactated Ringer's 1,000 ml @ 30 mls/hr Q24H PRN IV 08/09/16 12:00 08/12/16 11:59 Sodium Chloride 500 ml @ 30 mls/hr [id number] PRN IV 08/09/16 12:00 08/12/16 11:59 (Ancef 2 Gm Premix) 50 ml @ 100 mls/hr Q8H IV 08/09/16 23:00 08/10/16 15:29 08/10/16 06:30 (Restoril) 15 mg HS PRN PO 08/09/16 19:15 (Zofran Inj) 4 mg Q4H PRN IV 08/09/16 19:15 (Percocet 5-325 Mg) 1 tab Q4H PRN PO 08/09/16 19:15 08/10/16 00:00 (Percocet 5-325 Mg) 2 tab Q4H PRN PO 08/09/16 19:15 (Ativan Inj) 0.5 mg UNSCH PRN IV 08/09/16 19:15 08/10/16 19:14 Atropine Sulfate 0.5 mg 0.5 mg UNSCH PRN IV 08/09/16 19:15 (NS 250 ml Inj) 250 ml @ 500 mls/hr ONCE PRN IV 08/09/16 19:15 08/10/16 19:14 (Reglan Inj) 10 mg Q4H PRN IV 08/09/16 19:15 (Zofran Inj) 4 mg Q4H PRN IV 08/09/16 19:15 (Xylocaine 1% Inj (50 ml)) 10 ml UNSCH PRN INFIL 08/09/16 19:15 08/10/16 19:14 Vital Signs / I&O Vital Signs Date Time Temp Pulse Resp B/P Pulse Ox O2 Delivery O2 Flow Rate FiO2 08/10/16 08:03 68 08/10/16 07:00 97.8 73 18 97/60 98 08/10/16 07:00 77 08/10/16 06:00 64 08/10/16 05:00 64 5/31/17 04:00 66 08/10/16 03:00 97.8 98 12 100/65 98 08/10/16 03:00 74 08/10/16 02:00 70 08/10/16 01:00 74 08/10/16 00:00 76 08/09/16 23:00 74 08/09/16 23:00 97.3 83 12 121/64 96 08/09/16 22:00 68 08/09/16 21:00 74 08/09/16 19:00 97.7 69 16 152/96 98 08/09/16 12:01 98.8 77 18 140/91 98 I/O 08/09/16 08/09/16 08/09/16 08/10/16 08/10/16 08/10/16 07:00 15:00 23:00 07:00 15:00 23:00 Intake Total 480 ml Output Total 550 ml Balance -70 ml Intake Oral 480 ml Output Urine Total 550 ml Physical Exam GENERAL: Well-nourished, well-developed patient. SKIN: Warm and dry. Incision clean, dry and intact. HEAD: Normocephalic. EYES: No scleral icterus. No injection or drainage. NECK: Supple, trachea midline. No JVD or lymphadenopathy. CARDIOVASCULAR: Regular rate and rhythm without murmurs, gallops, or rubs. RESPIRATORY: Breath sounds equal bilaterally. No accessory muscle use. GASTROINTESTINAL: Abdomen soft, non-tender, nondistended. EXTREMITIES: No cyanosis, or edema. NEUROLOGICAL: Awake, alert, and oriented x 3. Non-focal. Laboratory Laboratory Tests Test 08/09/16 11:50 White Blood Count 7.1 TH/MM3 Red Blood Count 5.11 MIL/MM3 Hemoglobin 14.8 GM/DL Hematocrit 45.1 % Mean Corpuscular Volume 88.3 FL Mean Corpuscular Hemoglobin 29.0 PG Mean Corpuscular Hemoglobin 32.9 % Concent Red Cell Distribution Width 13.6 % Platelet Count 192 TH/MM3 Mean Platelet Volume 9.0 FL Neutrophils (%) (Auto) 60.8 % Lymphocytes (%) (Auto) 26.0 % Monocytes (%) (Auto) 11.0 % Eosinophils (%) (Auto) 1.8 % Basophils (%) (Auto) 0.4 % Neutrophils # (Auto) 4.3 TH/MM3 Lymphocytes # (Auto) 1.9 TH/MM3 Monocytes # (Auto) 0.8 TH/MM3 Eosinophils # (Auto) 0.1 TH/MM3 Basophils # (Auto) 0.0 TH/MM3 CBC Comment DIFF FINAL Differential Comment Prothrombin Time 11.5 SEC Prothromb Time International 1.0 RATIO Ratio Activated Partial 28.5 SEC Thromboplast Time Sodium Level 142 MEQ/L Potassium Level 4.0 MEQ/L Chloride Level 106 MEQ/L Carbon Dioxide Level 28.1 MEQ/L Anion Gap 8 MEQ/L Blood Urea Nitrogen 14 MG/DL Creatinine 0.85 MG/DL Estimat Glomerular Filtration 91 ML/MIN Rate Random Glucose 90 MG/DL Calcium Level 8.6 MG/DL Blood Type O POSITIVE Antibody Screen NEGATIVE Imaging Last Impressions Chest X-Ray 08/09/16 0000 Signed Impressions: Service Date/Time: Tuesday, August 09, 2016 19:31 - CONCLUSION: 1. Right-sided pacing device. No pneumothorax. Cardiomegaly. Bernardo Morales Jr., MD Assessment and Plan Problem List: (1) Non-ischemic cardiomyopathy Assessment and Plan: Ejection fraction 30% on optimal medical management for greater than 3 months. At increased risk of sudden cardiac . (2) S/P ICD (internal cardiac defibrillator) procedure Assessment and Plan: Stable status post ICD implantation for sudden cardiac prevention. Discharge home. Follow-up in [address] Holliday per my discussion with him. Daphney Bell August 10, 2016 08:11
--- NOTE | 2016-08-10 08:59 | EKG ---
Date Performed: 08/10/2016 Time Performed: 00:05:56 PTAGE: 61 years EKG: Sinus rhythm with 1st degree A-V block Possible left anterior fascicular block Extensive ST-T changes may be due to myocardial ischemia Abnormal ECG PREVIOUS TRACING : 08/09/2016 20.08 DOCTOR: Gage Deras Interpretating Date/Time 08/10/2016 08:57:54
--- NOTE | 2016-08-10 09:17 | EKG ---
Date Performed: 08/09/2016 Time Performed: 20:08:14 PTAGE: 61 years EKG: Sinus rhythm with 1st degree A-V block Left axis deviation Poor R wave progression - probable normal variant Infe rior/lateral ST-T changes may be due to myocardial ischemia Abnormal ECG NO PREVIOUS TRACING DOCTOR: Gage Deras Interpretating Date/Time 08/10/2016 09:14:50
--- NOTE | 2016-08-10 09:40 | EKG ---
Date Performed: 08/09/2016 Time Performed: 12:06:52 PTAGE: 61 years EKG: Sinus rhythm with 1st degree A-V block. Possible left anterior fascicular block Lateral T wave changes are nonspe cific Abnormal ECG PREVIOUS TRACING : 04/05/2016 10.18 DOCTOR: Gage Deras Interpretating Date/Time 08/10/2016 09:39:06
== END 2016-08-10 10:12 | disposition home or self-care (01) ==
LOC: HDIC 11:02 → HDOC 11:02 → HCIS 19:00 → HDOC 08-10 10:12
PROVIDERS: ATTEND Internal Medicine Interventional Cardiology
DX: I11.0 Hypertensive heart disease with heart failure (principal); I50.9 Heart failure, unspecified; I48.91 Unspecified atrial fibrillation; I42.9 Cardiomyopathy, unspecified; R06.02 Shortness of breath; Z79.82 Long term (current) use of aspirin
CPT/HCPCS: 00534; 33249; 71010; 80048; 85025; 85610; 85730; 86850; 86900; 86901; 92960; 93005; 93620; 93623; C1721; C1730; C1777; C1898; J0690; J1644; J2250; J3010; J3370; J7050

== ENCOUNTER 2016-08-31 13:10 | Day surgery (SDC) | payer BC ==
[~2016-08-31] VITALS: Ht 170.2 cm; Wt 85.8 kg
[~2016-08-31 13:10] MED LIST changes: +CEPH-459 PO; -FURO1TAB62 PO; +FURO20TA PO; +HYDR12.57 PO; +POTA10TA2 PO; -POTA10TA8 PO
[2016-08-31] MEDS ORDERED: CHLORHEXIDINE GLUCONATE 2 % 1 PACK (2 CLOTHS) TOPICAL PRN (14:00)
[2016-08-31] MEDS ORDERED: LACTATED RINGER'S 1000 ML IV PRN (14:00)
[2016-08-31] MEDS ORDERED: NS 1000 ML IV SCH (14:00)
[2016-08-31] MEDS ORDERED: METOPROLOL TARTRATE 25 MG TAB PO PRN (14:00)
[2016-08-31] MEDS ORDERED: SODIUM CHLORID 0.9% 500 ML IV PRN (14:00)
[2016-08-31] MEDS ORDERED: POVIDONE IODINE 5% (ANTISEPSIS KIT) 4 APPLICATIONS EACH NARE PRN (14:00)
[2016-08-31] MEDS ORDERED: INSULIN HUMAN REGULAR 1,000 UNITS/10 ML VIAL SQ PRN (14:00)
[2016-08-31 14:13] VITALS: BP 148/86; PULSE 81; RESP 18; TEMP 98.7; O2SAT 96
[2016-08-31] MEDS ORDERED: POVIDONE IODINE 5% (ANTISEPSIS KIT) 4 APPLICATIONS EACH NARE SCH (14:15)
[2016-08-31] MEDS ORDERED: VANCOMYCIN 1000 MG/NS 250 ML IV SCH ×2 (14:15)
[2016-08-31] MEDS ORDERED: MUPIROCIN 2% OINT 1 APPLIC/GM SYR NASAL SCH (14:15)
[2016-08-31] MEDS ORDERED: CHLORHEXIDINE GLUCONATE 2 % 1 PACK (2 CLOTHS) TOPICAL SCH (14:15)
[2016-08-31] MEDS ORDERED: ceFAZolin 2 GM PREMIX 50 ML IV SCH (14:15)
[2016-08-31] MEDS ORDERED: LORazepam 1 MG TAB SL SCH (14:15)
[2016-08-31] MEDS ORDERED: SPIR25 PO (14:22)
[2016-08-31] MEDS ORDERED: CARV12.5 PO (14:22)
[2016-08-31] MEDS ORDERED: LISI-515 PO (14:22)
[2016-08-31] MEDS ORDERED: ASPI81TA11 PO (14:22)
[2016-08-31 14:24] LABS: AUTOMATED NEUTROPHIL # 5.8 TH/MM3 (1.8-7.7); BASOPHIL % 0.5 % (0.0-2.0); EOSINOPHIL # 0.2 TH/MM3 (0-0.4); EOSINOPHIL % 2.2 % (0.0-4.0); HEMATOCRIT 42.8 % (39.0-51.0); HEMO FLAGS DIFF FINAL; LYMPH % 23.3 % (9.0-44.0); LYMPHOCYTE # 2.1 TH/MM3 (1.0-4.8); MEAN CELL VOLUME 87.1 FL (80.0-100.0); MEAN CORPUSCULAR HEMOGLOBIN 29.7 PG (27.0-34.0); MEAN CORPUSCULAR HGB CONC 34.1 % (32.0-36.0); MONO % 8.7 % (0.0-8.0); NEUT % 65.3 % (16.0-70.0); PLATELET COUNT 206 TH/MM3 (150-450); RED BLOOD COUNT 4.92 MIL/MM3 (4.50-5.90); RED CELL DISTRIBUTION WIDTH 13.4 % (11.6-17.2); WHITE BLOOD COUNT 8.9 TH/MM3 (4.0-11.0)
[2016-08-31 14:33] LABS: PROTHROMBIN TIME - PATIENT 10.8 SEC (9.8-11.6)
[2016-08-31 14:39] LABS: BICARBONATE 29.5 MEQ/L (21.0-32.0); POTASSIUM 3.8 MEQ/L (3.5-5.1)
[2016-08-31] MEDS ORDERED: LIDOCAINE HCL 2% 50 ML VIAL ONE (19:12)
[2016-08-31] MEDS ORDERED: VANCOMYCIN 500 MG VIAL ONE (19:12)
[2016-08-31] MEDS ORDERED: MIDAZOLAM HCL 5 MG/5 ML VIAL ONE (19:24)
[2016-08-31] MEDS ORDERED: TEMAZEPAM 15 MG CAP PO PRN (20:30)
[2016-08-31] MEDS ORDERED: FUROSEMIDE 20 MG TAB PO PRN (20:30)
[2016-08-31] MEDS ORDERED: ACETAMINOPHEN/CODEINE 300 MG/30 MG TAB PO PRN (20:30)
[2016-08-31] MEDS ORDERED: ONDANSETRON HCL 4 MG/2 ML VIAL IV PRN (20:30)
--- NOTE | 2016-08-31 20:45 | CATHPROC ---
[employer] HIS Report Study Information Study Number Admission Scheduled Start Study Start [id number] Aug 31 2016 1:10PM 08/31/2016 Aug 31 2016 7:16PM [place] Service Cardiac Pacer/ICD Admit Source Facility Department Other [facility] - Quality Project Manager Physician and Clinical Staff Initial [place] Programming Development Project Manager Steff Arellano,BACILIO Other Anesthesia, PUBLIC HEALTH PROFESSOR Recorder Maria E Barker,RT(R) TECH2 Scrub MarlynCastro sims,RT(R) X-Ray Castro ClineRT(R) Equipment Time Nursing Coordinator Description Size Mfg Part Number Used/Scraped DERMABOND, ADHESIVE SKIN [id number] 19:53 CORDIS/PACER * Used GLUE MINI *[id number] TP-1103 19:53 MEDLINE INDUSTRIES SUTURE, STRIP PLUS 1/2" * Used *[id number] 19:53 MEDLINE PACER MIGUEL, LIMB * 2530 *[id number] Used [id number] 19:53 MEDLINE PACER PACK, PACER CUSTOM * Used *[id number] 19:50 Needle Sponge Count 1 1 Used 19:50 Needle Sponge Count 2 22 Used 19:50 Needle Sponge Count 20 200 Used SUTURE, 0 ETHIBOND [CT1] (CX21D), 8pk SUTURE, 2-0 VICRYL [CT1] ([id number]) SUTURE, 2-0 VICRYL [CT1] ([id number]) [id number] 19:53 [place] [facility],WARM AIR CCL * Used *[id number] [facility] PAD, ELECTROSURGICAL 19:53 * [id number] *[id number] Used SURGICAL GROUNDING ORANGE [id number] 19:53 [employer] MEDICAL LUBNA. ELECTRODE, PRO-PADZ BIPHASIC * Used *[id number] History: Allergies Allergy Reaction No Known Allergies History: Risk Factors Hypertension Previous Heart Failure Yes Yes History: Other Current Smoker No Labs Hgb (g/dl) Hct (%) RBC (MIL/MM3) WBC (l/cumm) Platelets (thousands) 12.00-18.00 37.00-55.00 4.80-6.20 4.80-10.80 140.00-450.00 14.6 42.8 4.9 8.9 206 Medication Medication Total Dose (Bolus/Oral) Medication Total Dosage/Unit 2% XYLOCAINE 50 mL Medications (Bolus/Oral) Medication Time Given Dosage/Unit Administered By Reason 2% XYLOCAINE 08/31/2016 7:58:45 PM 50 mL Miri Holliday For pain 50 mL 2% XYLOCAINE given in lab by Miri Holliday via Subcutaneous. Ordered by Miri Holliday. Reason: For pain. Medication (Drip) Medication Time Given Dosage/Unit Concentration/Unit Diluent (ml) Solution IV Solutions 08/31/2016 7:47:57 PM 0 mL (IV) 500 NaCl .9 IV Solutions given in lab by Anesthesia, PUBLIC HEALTH PROFESSOR in Right Antecubital via Peripheral IV. Pump/Drip Flow = 20 ml/hr using NaCl .9. Ordered by Miri Holliday. Reason: As per physicians verbal order. IV Solutions 08/31/2016 7:48:36 PM 0 mL (IV) 500 NaCl .9 IV Solutions given in lab by Anesthesia, PUBLIC HEALTH PROFESSOR in Left Antecubital via Peripheral IV. Pump/Drip Flow = 20 ml/hr using NaCl .9. Ordered by Miri Holliday. Reason: As per physicians verbal order. Initial Case Assessment Cardiovascular HR Rhythm NIBP Chest Pain 81 sr 130/69 0 Edema Present Skin color Skin None Normal Warm Dry Neurological State Oriented to time-place- Alert Moves all extremities person Respiration - General Respiration Rate SpO2 (%) (B/min) 18 98 Final Case Assessment Cardiovascular HR Rhythm NIBP Chest Pain 80 sr 124/76 0 Edema Present Skin color Skin None Normal Warm Dry Neurological State Oriented to time-place- Alert Moves all extremities person Respiration - General Respiration Rate SpO2 (%) (B/min) 18 100 Chronological Log Time Study Chronological Log 19:30:15 Patient arrived via Bed. 19:31:29 Patient Name, D.O.B, / Armband Verified By R.N. 19:34:45 MD arrived. 19:35:34 Consent signed by the physician and the patient and verified by the Quality Project Manager staff. 19:35:39 Pre-op and post- op instructions given; patient acknowledges understanding of instructions. 19:45:50 Anesthesia at bedside. Assumes care of patient. INNA CURRIE 19:46:06 Patient has been NPO for More than 6Hrs. 19:46:08 Skin Breakdown- steri-strips covering insicion on right upper chest from ICD previously rica kayleigh. 19:47:31 Patient Warmer Placed on the Table. 19:47:32 Disposable Defibrillator Pads Placed On Patient. 19:47:33 Lorin Prominences Protected 19:47:36 A # 20 IV was noted in the Antecubital (left). Grade = 0 19:47:45 A # 20 IV was noted in the Antecubital (right). Grade = 0 IV Solutions given in lab by Anesthesia, PUBLIC HEALTH PROFESSOR in Right Antecubital via Peripheral IV. Pump/Drip Flow = 20 ml/hr using 19:47:57 NaCl .9. Ordered by Miri Holliday. Reason: As per physicians verbal order. IV Solutions given in lab by Anesthesia, PUBLIC HEALTH PROFESSOR in Left Antecubital via Peripheral IV. Pump/Drip Flow = 20 ml/hr using 19:48:36 NaCl .9. Ordered by Miri Holliday. Reason: As per physicians verbal order. 19:48:42 History and physical on the chart or being dictated. 19:49:14 Disposable Defibrillator Pads Placed On Patient. 19:49:15 Bovie ground pad applied to: left upper thigh 19:49:28 2% CHLORHEXIDINE GLUCONATE WASH AND NASAL SWIPE DONE PRIOR TO PROCEDURE. First Sponge And Instrument Count Done by Maria E Barker, RT(R) TECH2. 19:49:39 Hypo's: 1, Sponges: 20, Bovie/scratch: 2 Sutures: 10, Blades: 1, Instruments: 25, Syveck Patches: 0 19:50:39 Right Upper Chest Prepped Times Two. Assessment: Initial Case, HR=81 BPM, Rhythm=sr, WQEQ=670/69 mmhg, Chest Pain=0, Edema=None, Col or=Normal, Skin = Warm, Dry 19:52:57 Neurological: State=Alert, Ox3, PELAEZ Respiration: Resp=18 B/min, SpO2=98 % Time Out. Correct patient, procedure, procedure equipment, site and side verified with physicia n present. Time 19:57:20 concurred by MD, individual staff and PUBLIC HEALTH PROFESSOR. Time Out #2 - Consents verified, patient in correct position, all results are labled and displa yed, safety precautions 19:57:40 taken, antibiotics administered. Time out concurred by MD, individual staff and PUBLIC HEALTH PROFESSOR in procedu re 19:58:06 Case Start 19:58:45 50 mL 2% XYLOCAINE given in lab by Miri Holliday via Subcutaneous. Ordered by Miri Holliday . Reason: For pain. 19:59:09 Surgical Incision Made. 19:59:13 A pocket was created at the R Upper Chest. 20:01:04 A device was explanted. 20:01:37 Lead placement verified under fluoroscopy 20:04:28 RV lead repositioned 20:04:53 The RV lead impedance and threshold being tested. 20:05:23 The RV lead was sutured to the fascia. 20:12:12 Pocket flushed with antibiotic solution 20:12:19 Original ICD was connected and placed in the pocket. Second Sponge And Instrument Count Done by Steff Arellano RN. 20:12:35 Hypo's: 1, Sponges: 20, Bovie/scratch: 2 Sutures: ~SUTURE~, Blades: 1, Instruments: ~INSTRU~, Syveck Patches: 0 20:12:49 Implant Procedure was performed. 20:12:53 A Lead Revision . (Dual) 20:13:21 The pocket was closed. The Final Sponge And Instrument Count Done by Miri Holliday. 20:18:30 Hypo's: 1, Sponges: 20, Bovie/scratch: 2 Sutures: 10, Blades: 1, Instruments: 25, Syveck Patches: 0 20:18:45 Steri-strips and a sterile dressing applied to site. 20:18:46 Case End 20:19:41 No case complications noted. 20:19:43 Cine recording checked. 20:19:49 Bedside Report will be given. 20:20:27 Defibrillator and ground pads removed. Skin intact. Assessment: Final Case, HR=80 BPM, Rhythm=sr, BKRV=816/76 mmhg, Chest Pain=0, Edema=None, [place] r=Normal, Skin = Warm, Dry 20:21:09 Neurological: State=Alert, Ox3, PELAEZ Respiration: Resp=18 B/min, OgO5=196 % 20:25:36 Patient moved to stretcher 20:25:43 CICU called. Spoke to DEALER ACCOUNTS INVESTIGATOR. 20:26:21 A sling was placed on the affected arm. End Study - Contrast Media Used In Study Contrast Total Opened (mL) Total Used (mL) Total Wasted (mL) Unspecified 0 0 0 End Study - Radiation Exposure Fluoro Time (minutes) 0.4 End Study - Patient Disposition Complications Transferred To No Outpatient Bed
[2016-08-31 21:00] VITALS: BP 158/97; PULSE 73; PULSE 74; RESP 18; TEMP 97.9; O2SAT 98
[2016-08-31] MEDS: CARVEDILOL 12.5 MG TAB PO SCH (21:15)
[2016-08-31] MEDS: ACETAMINOPHEN/CODEINE 300 MG/30 MG TAB PO PRN (21:15)
[2016-08-31] MEDS ORDERED: DO NOT ADM ANY ANTICOAGULANT DRUGS PRN (21:30)
--- NOTE | 2016-08-31 21:41 | RADRPT ---
EXAM DATE/TIME: 08/31/2016 20:59 [place] COMPARISON: CHEST SINGLE AP, August 09, 2016, 19:31. INDICATIONS : Post op pacemaker lead exchange MEDICAL HISTORY : Hypertension SURGICAL HISTORY : Pacemaker. ENCOUNTER: Initial ACUITY: 1 day PAIN SCORE: 0/10 LOCATION: Bilateral chest FINDINGS: Portable AP view of the chest demonstrates a normal-sized cardiac silhouette. Right chest wall pacing device is present with lead tips overlying the heart. No effusion, consolidation, or pneumothorax is visualized. Bones demonstrate no acute finding. CONCLUSION: No acute finding is identified. Moustapha Dennis MD on August 31, 2016 at 21:38 Board Certified Radiologist. This report was verified electronically.
[2016-08-31 22:00] VITALS: PULSE 65
[2016-08-31 22:50] VITALS: O2SAT 98
[2016-08-31 23:00] VITALS: BP 115/71; PULSE 65; PULSE 71; RESP 18; TEMP 97.8; O2SAT 97
[2016-09-01] VITALS (14 sets, daily range): BP systolic 94–119; BP diastolic 63–70; PULSE 69–77; RESP 18; TEMP 98.7–98.9; O2SAT 96–97
[2016-09-01] MEDS: ceFAZolin 2 GM PREMIX 50 ML IV SCH ×2 (00:18→08:53)
[2016-09-01] MEDS: ACETAMINOPHEN/CODEINE 300 MG/30 MG TAB PO PRN (07:59)
[2016-09-01] MEDS: CARVEDILOL 12.5 MG TAB PO SCH (08:52)
[2016-09-01] MEDS ORDERED: LISINOPRIL 20 MG TAB PO SCH (09:00)
[2016-09-01] MEDS ORDERED: SPIRONOLACTONE 25 MG TAB PO SCH (09:00)
[2016-09-01] MEDS ORDERED: ASPIRIN EC 81 MG TABEC PO SCH (09:00)
--- NOTE | 2016-09-01 10:38 | HHI.PR ---
Subjective Remarks Feeling better Objective Vital Signs Date Time Temp Pulse Resp B/P Pulse Ox O2 Delivery O2 Flow Rate FiO2 09/01/16 09:26 18 09/01/16 09:03 96 09/01/16 08:00 98.9 69 18 119/70 96 09/01/16 06:00 69 09/01/16 05:00 74 09/01/16 04:00 74 09/01/16 03:00 98.7 74 18 94/63 97 09/01/16 03:00 73 09/01/16 02:00 74 09/01/16 01:00 75 09/01/16 00:00 74 08/31/16 23:00 97.8 65 18 115/71 97 08/31/16 23:00 71 08/31/16 22:50 98 08/31/16 22:00 65 08/31/16 21:00 97.9 73 18 158/97 98 08/31/16 21:00 74 08/31/16 14:13 98.7 81 18 148/86 96 I/O 08/31/16 08/31/16 08/31/16 09/01/16 09/01/16 09/01/16 07:00 15:00 23:00 07:00 15:00 23:00 Intake Total 720 ml Output Total 425 ml Balance 295 ml Intake Oral 720 ml Output Urine Total 425 ml Result Diagram: 08/31/16 1400 08/31/16 1400 Imaging Alert, fully oriented Lungs: ventilated Heart: S1, S2 regular, no gallop Left infraclavicular area with clean surgical wound. Abdomen: soft, no mass, no bruit Ext: no edema Last Impressions Chest X-Ray 08/31/16 0000 Signed Impressions: Service Date/Time: Wednesday, August 31, 2016 20:59 - CONCLUSION: No acute finding is identified. Moustapha Dennis MD Current Medications Medications (Trade) Dose Ordered Sig/Iglesia Route Start Time Stop Time Status Last Admin Lactated Ringer's 1,000 ml @ 30 mls/hr Q24H PRN IV 08/31/16 14:00 09/03/16 13:59 Sodium Chloride 500 ml @ 30 mls/hr [id number] PRN IV 08/31/16 14:00 09/03/16 13:59 Sodium Chloride 1,000 ml @ 30 mls/hr Q24H IV 08/31/16 14:00 (Ancef 2 Gm Premix) 50 ml @ 100 mls/hr Q8H IV 09/01/16 00:00 09/01/16 16:29 09/01/16 08:53 (Restoril) 15 mg HS PRN PO 08/31/16 20:30 (Zofran Inj) 4 mg Q4H PRN IV 08/31/16 20:30 (Tylenol-Codeine #3) 1 tab Q4H PRN PO 08/31/16 20:30 09/01/16 07:59 (Tylenol-Codeine #3) 2 tab Q4H PRN PO 08/31/16 20:30 09/01/16 01:00 (Ecotrin Ec) 81 mg DAILY PO 09/01/16 09:00 09/01/16 08:52 (Coreg) 12.5 mg BID PO 08/31/16 21:00 09/01/16 08:52 (Lasix) 20 mg DAILY PRN PO 08/31/16 20:30 (Prinivil) 20 mg DAILY PO 09/01/16 09:00 09/01/16 08:52 (Aldactone) 12.5 mg DAILY PO 09/01/16 09:00 09/01/16 08:52 Miscellaneous Information ALL NURSING DEPARTME... UNSCH PRN .XX 08/31/16 21:30 09/01/16 21:29 Assessment and Plan Problem List: (1) CHF (congestive heart failure) Status: Acute Plan: Stable. On optimal medical management (2) S/P ICD (internal cardiac defibrillator) procedure Status: Acute Plan: Device well functioning Clean surgical wound will be DH Follow up in 3 weeks Miri Holliday MD Sep 01, 2016 10:38
[2016-09-01] MEDS ORDERED: CEPH-460 PO (10:49)
[2016-09-01] MEDS ORDERED: ACET-534 PO (10:49)
--- NOTE | 2016-09-01 14:04 | EKG ---
Date Performed: 08/31/2016 Time Performed: 14:24:36 PTAGE: 61 years EKG: Sinus rhythm with borderline 1st degree A-V block Possible left anterior fascicular block Possible anterior infar ct - age undetermined Compared to prior tracing no significant change Abnormal ECG PREVIOUS TRACING : 08/10/2016 00.05 DOCTOR: Anna Marie Girard Interpretating Date/Time 09/01/2016 13:55:49
--- NOTE | 2016-09-01 14:05 | EKG ---
Date Performed: 08/31/2016 Time Performed: 22:29:28 PTAGE: 61 years EKG: Possible ectopic atrial rhythm Left axis deviation Possible anterior infarct - age undeterm ined Inferior/lateral ST-T changes are nonspecific Compared to prior tracing no significant change Ab normal ECG PREVIOUS TRACING : 08/31/2016 14.24 DOCTOR: Anna Marie Girard Interpretating Date/Time 09/01/2016 13:55:58
--- NOTE | 2016-09-02 11:32 | MP ---
cc: RONNA GUO HUNG M.D. RIMPEL, RICARDY R. MD DATE OF SURGERY 09/01/2016 OPERATION PERFORMED Defibrillator removal and right ventricular defibrillatory lead revision. INDICATIONS Mr. Shankar is a 61-year-old gentleman with a history of congestive heart failure, cardiomyopathy. He has a previous defibrillator implanted on the August 09, 2016. The gentleman was discharged home. Interrogation of the device showed decreased right ventricular defibrillatory lead capture. Decision for lead reposition was taken. Ejection fraction is 30%. The gentleman is on optimal medical management. The risks, the nature and the benefit of the procedure are clearly stated to him. The risks include pneumothorax, cardiac perforation, stroke, need for open heart surgery and even . The patient understood and agreed to proceed. This is a known ischemic cardiomyopathy. PROCEDURE After written informed consent was obtained, the patient was brought to the EP lab where he was prepped and draped in the usual sterile fashion. Conscious sedation was initiated and maintained throughout the procedure by anesthesiologist. Once sedation verified, the right infraclavicular area was anesthetized with 2% Xylocaine. Using a #11 scalpel, a 3-cm incision was made over the existing generator. Dissection was then taken down through the deep fascial layer using Bovie cautery and blunt dissection. Once exposed, the generator was removed from the pocket. Scar tissue was removed around the lead, the pocket was expanded. Pocket revision was performed. Then the lead was disconnected from the generator. The suture was removed around the lead. Then the stylet was advanced into the lead. The lead was unscrewed. After adequate pacing and sensing thresholds were obtained, the lead was taken into the pocket #2 Ethibond suture. At that point, the pocket was copiously irrigated using antibiotic solution. The leads were connected to the generator and placed into the pocket. I did proceed wound closure. The deep fascial layer was approximated using 2-0 Vicryl suture in a continuous fashion. The subcutaneous layer was approximated using #2-0 Vicryl suture in a continuous fashion. The subcuticular layer was approximated using #2-0 Vicryl suture in a continuous fashion. Dermabond adhesive was applied to the wound followed by sterile pressure dressing. There were no complications. The patient tolerated the procedure. Blood loss minimal. 1. For information about the leads, please refer to previous dictation. The device is from [employer]. 2. Threshold. The right ventricular pacing threshold in the Bipolar mode was 0.75 bolts at 0.5 milliseconds. Lead impedance was around 460 ohms, R-wave at 7 mV. 3. Settings: The device set in a DDD-50 upper rate limit 120 beats per minute. Defibrillatory portion for two zones, one Zone for ventricular tachycardia between 160-240 beats per minute. Initial therapy consists of one burst of ATP, one Ramp, 81% 10 pause, 70 decremental, followed by followed then 25 and all subsequent shocks at 35 joule defibrillatory Shocks. Second zone for ventricular fibrillation above 240 beats per minute. First therapy at 25 and all subsequent shocks at 35 defibrillatory shock. CONCLUSION Successful defibrillator removal and replacement and right ventricular defibrillatory lead reposition. COMMENT AND RECOMMENDATIONS The patient is going to be transferred to the telemetry units. He will be observed and when stable can be discharged home. MD KADNICE Stahl/DEREK /10:47 AM /11:17 AM
== END 2016-09-01 11:48 | disposition home or self-care (01) ==
LOC: HDOC 13:10 → HDIC 13:11 → HCIS 20:55 → HDOC 09-01 11:48
PROVIDERS: ATTEND Internal Medicine Interventional Cardiology
DX: T82.120A Displacement of cardiac electrode, initial encounter (principal); I50.9 Heart failure, unspecified; I42.9 Cardiomyopathy, unspecified
CPT/HCPCS: 00534; 33215; 71010; 80048; 85025; 85610; 85730; 86850; 86900; 86901; 93005; J0690; J2250; J3010; J3370

== ENCOUNTER 2017-09-22 07:36 | Inpatient (IN) ==
--- NOTE | 2017-09-22 08:32 | ED ---
HPI General Chief Complaint: Syncope Stated Complaint: Disoriented/fainted Time Seen by Provider: 09/22/17 08:06 History of Present Illness HPI narrative: Patient presents to the emergency department for syncopal episode this morning. States that he had a charley horse in his left leg and he tried to walk at all and the next thing he knew he was on the floor. Symptoms have never happened before. Positive LOC for less than 1 minute. states that when she found him he was pale and he could not remember what happened. He denies recent travel, chest pain, shortness of breath, fever, chills, nausea, vomiting, but reports headache on the left side, intermittent, resolved currently. Also states that he had a tingling sensation in both arms which have now resolved. And also reports that his left jaw hurts. Patient takes ASA 81mg, but didn't take it today. Related Data Home Medications Medication Instructions Recorded Confirmed aspirin 81 mg PO DAILY 09/22/17 09/22/17 carvedilol 12.5 mg PO BID 09/22/17 09/22/17 cetirizine [Zyrtec] 10 mg PO DAILY PRN 09/22/17 09/22/17 furosemide [Lasix] 20 mg PO DAILY PRN 09/22/17 09/22/17 lisinopril 20 mg PO DAILY 09/22/17 09/22/17 potassium chloride 10 meq PO DAILY PRN 09/22/17 09/22/17 spironolactone 12.5 mg PO DAILY 09/22/17 09/22/17 Allergies Allergy/AdvReac Type Severity Reaction Status Date / Time No Known Allergies Allergy Mild NONE Uncoded 09/22/17 08:06 Review of Systems ROS Unobtainable All other systems reviewed negative except as stated in HPI [facility] Medical History Medical History CHF (congestive heart failure) (Acute) HTN (hypertension) (Acute) Presence of combination internal cardiac defibrillator (ICD) and pacemaker ( Acute) Social History Social History Substance History: No History of Abuse Smoking Status: Never smoker How Often Do You Have a Drink Containing Alcohol: 2 to 4 times a month Recent Travel in [facility] within the Last 8 Weeks: No Recent Out of Country Travel within the Last 8 Weeks: No Immunization History Tetanus Immunization: Unsure Hx Influenza Vaccine This Season: Yes Exam Narrative Exam Narrative: GENERAL: No acute distress. SKIN: Focused skin assessment warm/dry. HEAD: Atraumatic. Normocephalic. EYES: Pupils equal and round. No scleral icterus. No injection or drainage. EOMI bilat. ENT: No nasal bleeding or discharge. Mucous membranes pink and moist. NECK: Trachea midline. No JVD. No focal C-spine tenderness. CARDIOVASCULAR: Regular rate and rhythm. No murmur appreciated. RESPIRATORY: No accessory muscle use. Clear to auscultation. Breath sounds equal bilaterally. GASTROINTESTINAL: Abdomen soft, non-tender, nondistended. Hepatic and splenic margins not palpable. MUSCULOSKELETAL: No obvious deformities. No clubbing. No cyanosis. No edema. No focal T or L-spine tenderness. 5/5 strength bilat UE and LE. NEUROLOGICAL: Awake and alert. No obvious cranial nerve deficits. Motor grossly within normal limits. Normal speech. GCS 15. PSYCHIATRIC: Appropriate mood and affect; insight and judgment normal. Course Initial Documented Vital Signs Temperature 99.3 F 09/22/17 07:43 Pulse Rate 84 09/22/17 07:43 Respiratory Rate 20 09/22/17 07:43 Blood Pressure 137/72 09/22/17 07:43 Pulse Oximetry 98 09/22/17 07:43 Last Documented Vital Signs Temperature 99.3 F 09/22/17 07:43 Pulse Rate 79 09/22/17 08:03 Respiratory Rate 16 09/22/17 07:55 Blood Pressure 130/80 09/22/17 07:55 Pulse Oximetry 99 09/22/17 08:26 Medical Decision Making MDM Narrative Medical decision making narrative: Patient presents to the emergency department status post syncopal episode. Patient placed on a front desk monitor, continuous pulse ox, and IV access is obtained. EKG, chest x-ray, head CT and labs ordered. Patient advises that he is claustrophobic and states it would be difficult for him to get a CT scan; therefore, he was given 1 mg IV Ativan. CBC shows leukocytosis. D-dimer normal, BUN increased. Chest x-ray shows mild LVH and pacer on the right. Head CT shows possible hemorrhage along the tentorial edge on the left. Patient has a pacemaker cannot get MRI, radiology suggest repeat CT scan in 24 hours to exclude hemorrhage. C spine CT shows: " No evidence of acute bony or soft tissue trauma. 2. Moderate degenerative disc disease with marginal spondylosis, mild anterior epidural effacement and mild to moderate foraminal encroachment at C4-5, C5-6 and C6-7.3. No evidence of acute disc herniation. " Neurosurgery has been consulted at [id number]. [id number] [facility] [place] youth probation officer, advised to repeat CT scan in 24 hours, nothing to do right now, can admit to step down. Lab Data Result diagrams: 09/22/17 08:05 09/22/17 08:05 Lab Results 09/22/17 09/22/17 09/22/17 Range/Units 02:49 08:05 08:05 WBC 11.3 H (4.0-11.0) th/mm3 RBC 5.10 (4.50-5.90) mil/mm3 Hgb 15.2 (13.0-17.0) gm/dL Hct 45.2 (39.0-51.0) % MCV 88.5 (80.0-100.0) fL MCH 29.8 (27.0-34.0) pg MCHC 33.7 (32.0-36.0) % RDW 13.7 (11.6-17.2) % Plt Count 227 (150-450) th/mm3 MPV 8.7 (7.0-11.0) fL Neut % (Auto) 75.7 H (16.0-70.0) % Lymph % (Auto) 15.6 (9.0-44.0) % [place] % (Auto) 7.3 (0.0-8.0) % Eos % (Auto) 1.0 (0.0-4.0) % Baso % (Auto) 0.4 (0.0-2.0) % Neut # (Auto) 8.6 H (1.8-7.7) th/mm3 Lymph # (Auto) 1.8 (1.0-4.8) th/mm3 [place] # (Auto) 0.8 (0.0-0.9) th/mm3 Eos # (Auto) 0.1 (0.0-0.4) th/mm3 Baso # (Auto) 0.0 (0.0-0.2) th/mm3 WBC Differential . Differential Comment Auto diff final PT 10.3 (9.8-11.6) sec INR 1.0 Ratio APTT 24.3 (24.3-30.1) sec D-Dimer Quant (PE/DVT) (0.00-0.50) mg/L FEU Sodium 141 (136-145) meq/L Potassium 4.2 (3.5-5.1) meq/L Chloride 107 (98-107) meq/L Carbon Dioxide 25.1 (21.0-32.0) meq/L Anion Gap 9 (5-15) meq/L BUN 22 H (7-18) mg/dL Creatinine 1.19 (0.60-1.30) mg/dL Estimated GFR 62 L (>89) mL/min Random Glucose 110 H (74-106) mg/dL Calcium 8.8 (8.5-10.1) mg/dL Magnesium 2.3 (1.5-2.5) mg/dL Total Bilirubin 0.4 (0.2-1.0) mg/dL AST 17 (15-37) U/L ALT 25 (12-78) U/L Alkaline Phosphatase 80 (45-117) U/L Troponin I Less than 0.02 L (0.02-0.05) ng/mL Total Protein 7.2 (6.4-8.2) g/dL Albumin 3.6 (3.4-5.0) g/dL 09/22/17 Range/Units 08:05 WBC (4.0-11.0) th/mm3 RBC (4.50-5.90) mil/mm3 Hgb (13.0-17.0) gm/dL Hct (39.0-51.0) % MCV (80.0-100.0) fL MCH (27.0-34.0) pg MCHC (32.0-36.0) % RDW (11.6-17.2) % Plt Count (150-450) th/mm3 MPV (7.0-11.0) fL Neut % (Auto) (16.0-70.0) % Lymph % (Auto) (9.0-44.0) % [place] % (Auto) (0.0-8.0) % Eos % (Auto) (0.0-4.0) % Baso % (Auto) (0.0-2.0) % Neut # (Auto) (1.8-7.7) th/mm3 Lymph # (Auto) (1.0-4.8) th/mm3 [place] # (Auto) (0.0-0.9) th/mm3 Eos # (Auto) (0.0-0.4) th/mm3 Baso # (Auto) (0.0-0.2) th/mm3 WBC Differential Differential Comment PT (9.8-11.6) sec INR Ratio APTT (24.3-30.1) sec D-Dimer Quant (PE/DVT) 0.36 (0.00-0.50) mg/L FEU Sodium (136-145) meq/L Potassium (3.5-5.1) meq/L Chloride (98-107) meq/L Carbon Dioxide (21.0-32.0) meq/L Anion Gap (5-15) meq/L BUN (7-18) mg/dL Creatinine (0.60-1.30) mg/dL Estimated GFR (>89) mL/min Random Glucose (74-106) mg/dL Calcium (8.5-10.1) mg/dL Magnesium (1.5-2.5) mg/dL Total Bilirubin (0.2-1.0) mg/dL AST (15-37) U/L ALT (12-78) U/L Alkaline Phosphatase (45-117) U/L Troponin I (0.02-0.05) ng/mL Total Protein (6.4-8.2) g/dL Albumin (3.4-5.0) g/dL Imaging Data Radiologist's impression: ITS Impressions Cervical Spine CT 09/22/17 08:26 CONCLUSION: 1. No evidence of acute bony or soft tissue trauma. 2. Moderate degenerative disc disease with marginal spondylosis, mild anterior epidural effacement and mild to moderate foraminal encroachment at C4-5, C5-6 and C6-7. 3. No evidence of acute disc herniation Head CT 09/22/17 08:26 CONCLUSION: Hemorrhage along the tentorial edge left side cannot be excluded. Since the patient has a pacemaker and cannot have an MRI repeat CT scan in 24 hours would be of benefit to exclude hemorrhage. Chest X-Ray 09/22/17 08:27 CONCLUSION: Mild left ventricular hypertrophy otherwise negative Pacer on the right ECG Data EKG Prior to Arrival: No Attestation: I personally reviewed and interpreted this ECG as follows: (Sinus rhythm with first-degree AV block, rate 80, MA interval greater than 0.2, left axis deviation) Discharge Plan Discharge Disposition Patient Disposition: 30 Still Patient Discharge Condition Condition: Stable Discharge Details Diagnosis: Syncope Physicians Team ED Provider: Marina Charlton Primary Care Provider: UNKNOWN, Rxs /Orders / Referrals /Forms Prescriptions: No Action carvedilol 12.5 mg Tablet 12.5 mg PO BID RF: 0 lisinopril 20 mg Tablet 20 mg PO DAILY RF: 0 potassium chloride 10 mEq Tablet Extended Release 10 meq PO DAILY PRN (Reason: Electrolyte Replenishment) RF: 0 spironolactone 25 mg Tablet 12.5 mg PO DAILY RF: 0 aspirin 81 mg Tablet,Chewable 81 mg PO DAILY RF: 0 furosemide [Lasix] 20 mg Tablet 20 mg PO DAILY PRN (Reason: Electrolyte Replenishment) RF: 0 cetirizine [Zyrtec] 10 mg Capsule 10 mg PO DAILY PRN (Reason: Allergy Symptoms) RF: 0 Status ED Status: With Doctor
--- NOTE | 2017-09-22 08:59 | XR ---
EXAM DATE: 09/22/2017 8:55 AM EDT AGE/SEX: 62 years / Male INDICATIONS: Syncope CLINICAL DATA: This is the patient's initial encounter. Patient reports that signs and symptoms have been present for 1 day and indicates a pain score of 2/10. MEDICAL/SURGICAL HISTORY: None. Pacemaker. COMPARISON: [facility] – [place], CHEST SINGLE AP, 08/31/2016. . FINDINGS: Pacemaker placement right chest. Mild left ventricular hypertrophy. The lungs are clear. The portion of the bony skeleton visualized is unremarkable. CONCLUSION: Mild left ventricular hypertrophy otherwise negative Pacer on the right Electronically signed by: Harry Oliver MD 09/22/2017 8:57 AM EDT
[2017-09-22 09:03] LABS: Baso % (Auto) 0.4 % (0.0-2.0); Eos # (Auto) 0.1 th/mm3 (0.0-0.4); Hematocrit 45.2 % (39.0-51.0); Hemoglobin 15.2 gm/dL (13.0-17.0); Lymph # (Auto) 1.8 th/mm3 (1.0-4.8); Lymph % (Auto) 15.6 % (9.0-44.0); Mean Corpuscular HGB Conc 33.7 % (32.0-36.0); Mean Corpuscular Hemoglobin 29.8 pg (27.0-34.0); Mean Corpuscular Volume 88.5 fL (80.0-100.0); Mean Platelet Volume 8.7 fL (7.0-11.0); Mono # (Auto) 0.8 th/mm3 (0.0-0.9); Mono % (Auto) 7.3 % (0.0-8.0); Neut # (Auto) 8.6 th/mm3 (1.8-7.7); Neut % (Auto) 75.7 % (16.0-70.0); Platelet Count 227 th/mm3 (150-450); Red Cell Distribution Width 13.7 % (11.6-17.2); White Blood Count 11.3 th/mm3 (4.0-11.0)
--- NOTE | 2017-09-22 09:05 | CT ---
EXAM DATE: 09/22/2017 9:01 AM EDT AGE/SEX: 62 years / Male INDICATIONS: Trauma, patient fainted, fell hit face. CLINICAL DATA: This is the patient's initial encounter. Patient reports that signs and symptoms have been present for 1 day and indicates a pain score of 4/10. MEDICAL/SURGICAL HISTORY: Cardiovascular disease. Hypertension. None. RADIATION DOSE: 56.35 CTDI (mGy) COMPARISON: No prior exams available for comparison. TECHNIQUE: CT of the head without contrast. Using automated exposure control and adjustment of the mA and/or kV according to patient size, radiation dose was kept as low as reasonably achievable to ob tain optimal diagnostic quality images. DICOM format image data is available electronically for revi ew and comparison. FINDINGS: There is minimal increased density along the left tentorial edge. Subtle hemorrhage cannot be exclude d. Right hemisphere is unremarkable. Posterior fossa appears normal. There is no extra-axial fluid. CONCLUSION: Hemorrhage along the tentorial edge left side cannot be excluded. Since the patient has a pacemaker and cannot have an MRI repeat CT scan in 24 hours would be of benef it to exclude hemorrhage. Electronically signed by: Harry Oliver MD 09/22/2017 9:04 AM EDT
[2017-09-22 09:21] LABS: Alanine Aminotransferase 25 U/L (12-78)
[2017-09-22 09:25] LABS: Albumin 3.6 g/dL (3.4-5.0); Alkaline Phosphatase 80 U/L (45-117); Anion Gap 9 meq/L (5-15); Aspartate Aminotransferase 17 U/L (15-37); Blood Urea Nitrogen 22 mg/dL (7-18); Calcium 8.8 mg/dL (8.5-10.1); Carbon Dioxide 25.1 meq/L (21.0-32.0); Chloride 107 meq/L (98-107); Glomerular Filtration Rate 62 mL/min (>89); Glucose,Random 110 mg/dL (74-106); Magnesium 2.3 mg/dL (1.5-2.5); Potassium 4.2 meq/L (3.5-5.1); Sodium 141 meq/L (136-145); Total Protein 7.2 g/dL (6.4-8.2)
[2017-09-22 09:28] LABS: Activated Partial Thrombo Time 24.3 sec (24.3-30.1); Prothrombin Time 10.3 sec (9.8-11.6)
--- NOTE | 2017-09-22 09:31 | CT ---
EXAM DATE: 09/22/2017 9:14 AM EDT AGE/SEX: 62 years / Male INDICATIONS: Trauma, patient fainted, fell hitting face. CLINICAL DATA: This is the patient's initial encounter. Patient reports that signs and symptoms have been present for 1 day and indicates a pain score of 4/10. MEDICAL/SURGICAL HISTORY: Cardiovascular disease. Hypertension. None. RADIATION DOSE: 21.30 CTDI (mGy) COMPARISON: No prior exams available for comparison. TECHNIQUE: Contiguous axial images were obtained using helical multirow detector technique. The vol umetric data was post-processed with multiplanar reconstruction in oblique axial, sagittal, and coron al planes. Using automated exposure control and adjustment of the mA and/or kV according to patient s ize, radiation dose was kept as low as reasonably achievable to obtain optimal diagnostic quality deepika ges. DICOM format image data is available electronically for review and comparison. FINDINGS: ALIGNMENT: Reversal of normal lordosis is noted. There is very slight anterolisthesis of C3 on C4. Ve rtebral bodies are otherwise satisfactorily aligned without evidence of additional listhesis. FACET AND OSSEOUS STRUCTURES: Vertebral body height is well-maintained. There is no evidence of acut e fracture, or destructive changes. Significant facet arthropathy is identified on the right at the C 2-3 and C3-4 levels. INTERVERTEBRAL DISC SPACES: [id number] degenerative disc disease is noted. Significant disc space narrowing with marginal spondylosis is identified at C4-5, C5-6 and C6-7 poste rior disc osteophyte complexes are causing anterior epidural effacement at these levels. There is no evidence of acute disc herniation. Mild to moderate foraminal encroachment is identified due to marginal spurring. There is no evidence of high-grade neural foraminal stenosis. NEUROLOGIC STRUCTURES: The spinal cord and nerve roots appear normal. There is no evidence of mimi amrita. CONCLUSION: 1. No evidence of acute bony or soft tissue trauma. 2. Moderate degenerative disc disease with marginal spondylosis, mild anterior epidural effacement a nd mild to moderate foraminal encroachment at C4-5, C5-6 and C6-7. 3. No evidence of acute disc herniation Electronically signed by: Wyatt Perry MD 09/22/2017 9:30 AM EDT
[2017-09-22] MEDS ORDERED: Acetaminophen 325 MG Tablet PO PRN (10:40)
[2017-09-22] MEDS ORDERED: Temazepam 15 MG Capsule PO PRN (10:40)
[2017-09-22 10:52] LABS: Bilirubin,Urine Negative (Negative); Clarity,Urine Clear (Clear); Color,Urine Yellow (Yellw/Straw); Glucose,Urine (UA) Negative (Negative); Leukocyte Esterase,Urine Negative (Negative); Mucus,Urine Few /lpf (Occasional); Nitrite,Urine Negative (Negative); Specific Gravity,Urine 1.015 (1.002-1.035)
[2017-09-22] MEDS ORDERED: Furosemide 20 MG Tablet PO PRN (14:00)
[2017-09-22] MEDS ORDERED: Lisinopril 20 MG Tablet PO SCH (14:15)
--- NOTE | 2017-09-22 14:26 | P.HP ---
History of Present Illness Primary Care Physician: UNKNOWN Chief Complaint: Loss of consciousness History of Present Illness: 62-year-old man with past medical history of CHF, combined defibrillator and pacemaker placement came to the hospital for evaluation of syncopal episode complicated by loss of consciousness after a fall. Patient has no recollection. Patient states, he has just woke up from sleeping on a sofa, and had a charley horse in his left lower extremity. He tried to walk however he found himself on the ground face up. Patient's did not witness what happened however heard a loud noise in the living room. she states, she found him pale and patient could not remember anything. This episode lasted less than 1 minutes. In The ED, Head CT had a questionable intracranial bleed. Patient complained of headaches. He has no chest pain, shortness of breath or heart palpitation. He Was recently seen about 2 weeks ago by his desktop publishing operator, Dr. Lu. He is currently on aspirin, however did not take his medicines this morning. - Diagnosis (1) Syncope and collapse (2) Intracranial hemorrhage (3) Loss of consciousness (4) History of implantable cardioverter-defibrillator (ICD) placement (5) History of permanent cardiac pacemaker placement Inpatient Certification: I certify that the inpatient services were ordered in accordance with Medicare regulations governing the order. This includes certification that hospital inpatient services are reasonable and necessary and in the case of services not specified as inpatient-only under 42 CFR 419.22(n), that they are appropriately provided as inpatient services in accordance to with the 2-midnight benchmark under 43 CFR 412.3(e) Estimated Total Length of Stay (Days): 2 Plans for Post Hospital Care: Not yet determined Review of Systems All other systems reviewed negative except as stated in HPI FOR[facility]LY [facility] - History History Provided By: Patient, Significant Other - Medical History Medical History: Medical History (Last Updated 09/22/17 @ 07:58 by Aydee Powers RN) CHF (congestive heart failure) HTN (hypertension) Presence of combination internal cardiac defibrillator (ICD) and pacemaker - Tobacco History Smoking Status: Never smoker - Alcohol History How Often Do You Have a Drink Containing Alcohol: 2 to 4 times a month - Substance Use History Substance History: No History of Abuse - Travel History Recent Travel in the [place] Within the Last 8 Weeks: No Recent Travel Out of the Country Within the Last 8 Weeks: No - Immunization History Tetanus Immunization: Unsure Hx Influenza Vaccine This Season: Yes Medications and Allergies Active Medications: Active Medications Acetaminophen (Tylenol) 650 mg PO Q4H PRN PRN Reason: Temp > 100.4 Al Hydroxide/Mg Hydroxide (Milk Of Amanda Patel) 30 ml PO Q12H PRN PRN Reason: Mild Constipation Carvedilol (Coreg) 12.5 mg PO BID SEVERINO Furosemide (Lasix) 20 mg PO DAILY PRN PRN Reason: Electrolyte Replenishment Lisinopril (Prinivil) 20 mg PO DAILY SEVERINO Non-Formulary Medication (Cetirizine [Zyrtec]) 10 mg PO DAILY PRN PRN Reason: Allergy Symptoms Ondansetron HCl (Zofran Odt) 4 mg PO Q6H PRN PRN Reason: NAUSEA OR VOMITING Potassium Chloride (Klor-Con 10) 10 meq PO DAILY PRN PRN Reason: Electrolyte Replenishment Spironolactone (Aldactone) 12.5 mg PO DAILY SEVERINO Temazepam (Restoril) 15 mg PO HS PRN PRN Reason: INSOMNIA Allergies Allergy/AdvReac Type Severity Reaction Status Date / Time No Known Allergies Allergy Mild NONE Uncoded 09/22/17 08:06 Home Medications Medication Instructions Recorded Confirmed Type aspirin 81 mg PO DAILY 09/22/17 09/22/17 History carvedilol 12.5 mg PO BID 09/22/17 09/22/17 History cetirizine [Zyrtec] 10 mg PO DAILY PRN 09/22/17 09/22/17 History furosemide [Lasix] 20 mg PO DAILY PRN 09/22/17 09/22/17 History lisinopril 20 mg PO DAILY 09/22/17 09/22/17 History potassium chloride 10 meq PO DAILY PRN 09/22/17 09/22/17 History spironolactone 12.5 mg PO DAILY 09/22/17 09/22/17 History Exam Vital signs: Vital Signs 09/22/17 07:43 09/22/17 07:55 09/22/17 08:03 Temperature 99.3 F Pulse Rate 84 80 79 Respiratory Rate 20 16 Blood Pressure 137/72 130/80 Pulse Oximetry 98 99 09/22/17 08:26 09/22/17 10:03 09/22/17 12:30 Temperature Pulse Rate 90 89 Respiratory Rate 18 20 Blood Pressure 114/73 128/67 Pulse Oximetry 99 97 97 Intake & Output 09/21/17 09/22/17 09/22/17 18:59 06:59 18:59 Weight 86.183 kg Narrative: GENERAL: NAD SKIN: Warm and dry. HEAD: Atraumatic. Normocephalic. EYES: Pupils equal and round. No scleral icterus. No injection or drainage. ENT: No nasal bleeding or discharge. Mucous membranes pink and moist. NECK: Trachea midline. No JVD. CARDIOVASCULAR: Regular rate and rhythm. RESPIRATORY: No accessory muscle use. Clear to auscultation. Breath sounds equal bilaterally. GASTROINTESTINAL: Abdomen soft, non-tender, nondistended. Hepatic and splenic margins not palpable. MUSCULOSKELETAL: Extremities without clubbing, cyanosis, or edema. No obvious deformities. NEUROLOGICAL: Awake and alert. No obvious cranial nerve deficits. Motor grossly within normal limits. Five out of 5 muscle strength in the arms and legs. Normal speech. PSYCHIATRIC: Appropriate mood and affect; insight and judgment normal. Results - Labs CBC & Chem 7: 09/22/17 08:05 09/22/17 08:05 Labs: Laboratory Results - last 24 hr 09/22/17 09/22/17 09/22/17 02:49 08:05 08:05 WBC 11.3 H RBC 5.10 Hgb 15.2 Hct 45.2 MCV 88.5 MCH 29.8 MCHC 33.7 RDW 13.7 Plt Count 227 MPV 8.7 Neut % (Auto) 75.7 H Lymph % (Auto) 15.6 Andrews % (Auto) 7.3 Eos % (Auto) 1.0 Baso % (Auto) 0.4 Neut # (Auto) 8.6 H Lymph # (Auto) 1.8 Andrews # (Auto) 0.8 Eos # (Auto) 0.1 Baso # (Auto) 0.0 WBC Differential . Differential Comment Auto diff final PT 10.3 INR 1.0 APTT 24.3 D-Dimer Quant (PE/DVT) Sodium 141 Potassium 4.2 Chloride 107 Carbon Dioxide 25.1 Anion Gap 9 BUN 22 H Creatinine 1.19 Estimated GFR 62 L Random Glucose 110 H Calcium 8.8 Magnesium 2.3 Total Bilirubin 0.4 AST 17 ALT 25 Alkaline Phosphatase 80 Troponin I Less than 0.02 L Total Protein 7.2 Albumin 3.6 Urine Color Urine Clarity Urine pH Ur Specific [place] Urine Protein Urine Glucose (UA) Urine Ketones Urine Occult Blood Urine Nitrate Urine Bilirubin Urine Urobilinogen Ur Leukocyte Esterase Urine WBC Urine Mucus Micro UA Comment Urine Culture Comments 09/22/17 09/22/17 08:05 10:06 WBC RBC Hgb Hct MCV MCH MCHC RDW Plt Count MPV Neut % (Auto) Lymph % (Auto) Andrews % (Auto) Eos % (Auto) Baso % (Auto) Neut # (Auto) Lymph # (Auto) Andrews # (Auto) Eos # (Auto) Baso # (Auto) WBC Differential Differential Comment PT INR APTT D-Dimer Quant (PE/DVT) 0.36 Sodium Potassium Chloride Carbon Dioxide Anion Gap BUN Creatinine Estimated GFR Random Glucose Calcium Magnesium Total Bilirubin AST ALT Alkaline Phosphatase Troponin I Total Protein Albumin Urine Color Yellow Urine Clarity Clear Urine pH 8.0 Ur Specific [place] 1.015 Urine Protein Negative Urine Glucose (UA) Negative Urine Ketones Negative Urine Occult Blood Negative Urine Nitrate Negative Urine Bilirubin Negative Urine Urobilinogen Less than 2 Ur Leukocyte Esterase Negative Urine WBC 1 Urine Mucus Few H Micro UA Comment Culture not ind Urine Culture Comments Culture not ind - Imaging Impressions Cervical Spine CT 09/22/17 08:26 CONCLUSION: 1. No evidence of acute bony or soft tissue trauma. 2. Moderate degenerative disc disease with marginal spondylosis, mild anterior epidural effacement and mild to moderate foraminal encroachment at C4-5, C5-6 and C6-7. 3. No evidence of acute disc herniation Head CT 09/22/17 08:26 CONCLUSION: Hemorrhage along the tentorial edge left side cannot be excluded. Since the patient has a pacemaker and cannot have an MRI repeat CT scan in 24 hours would be of benefit to exclude hemorrhage. Chest X-Ray 09/22/17 08:27 CONCLUSION: Mild left ventricular hypertrophy otherwise negative Pacer on the right Caprini VTE Risk Assessment Caprini VTE Risk Assessment: Moderate/High Risk (score >= 2) VTE Pharmacological Exception Reason: Hemorrhage Caprini Risk Assessment Model: Point Value = 1 Point Value = 2 Point Value = 3 Point Value = 5 Age 41-60 Minor surgery BMI > 25 kg/m2 Swollen legs Varicose veins or History of unexplained or recurrent spontaneous Oral contraceptives or hormone replacement Sepsis (< 1 month) Serious lung disease, including pneumonia (< 1 month) Abnormal pulmonary function Acute myocardial infarction Congestive heart failure (< 1 month) History of inflammatory bowel disease Medical patient at bed rest Age 61-74 Arthroscopic surgery Major open surgery (> 45 min) Laparoscopic surgery (> 45 min) Malignancy Confined to bed (> 72 hours) Immobilizing plaster cast Central venous access Age >= 75 History of VTE Family history of VTE Factor V Leiden Prothrombin [id number] Lupus anticoagulant Anticardiolipin antibodies Elevated serum homocysteine Heparin-induced thrombocytopenia Other congenital or acquired thrombophilia Stroke (< 1 month) Elective arthroplasty Hip, pelvis, or leg fracture Acute spinal cord injury (< 1 month) Prophylaxis Regimen: Total Risk Factor Score Risk Level Prophylaxis Regimen 0-1 Low Early ambulation 2 Moderate Order ONE of the following: *Sequential Compression Device (SCD) *Heparin 5000 units SQ BID 3-4 Higher Order ONE of the following medications: *Heparin 5000 units SQ TID *Enoxaparin/Lovenox 40 mg SQ daily (WT < 150 kg, CrCl > 30 mL/min) *Enoxaparin/Lovenox 30 mg SQ daily (WT < 150 kg, CrCl > 10-29 mL/min) *Enoxaparin/Lovenox 30 mg SQ BID (WT < 150 kg, CrCl > 30 mL/min) AND/OR *Sequential Compression Device (SCD) 5 or more Highest Order ONE of the following medications: *Heparin 5000 units SQ TID (Preferred with Epidurals) *Enoxaparin/Lovenox 40 mg SQ daily (WT < 150 kg, CrCl > 30 mL/min) *Enoxaparin/Lovenox 30 mg SQ daily (WT < 150 kg, CrCl > 10-29 mL/min) *Enoxaparin/Lovenox 30 mg SQ BID (WT < 150 kg, CrCl > 30 mL/min) AND *Sequential Compression Device (SCD) Assessment and Plan - Assessment (1) Syncope and collapse Code(s): R55 - Syncope and collapse Status: Acute (2) Intracranial hemorrhage Code(s): I62.9 - Nontraumatic intracranial hemorrhage, unspecified Status: Acute (3) Loss of consciousness Code(s): R40.20 - Unspecified coma Status: Acute (4) History of implantable cardioverter-defibrillator (ICD) placement Code(s): Z95.810 - Presence of automatic (implantable) cardiac defibrillator Status: Chronic (5) History of permanent cardiac pacemaker placement Code(s): Z95.0 - Presence of cardiac pacemaker Status: Chronic - Plan 62-year-old man with Syncope Loss of consciousness Head CT noted and review with finding of Hemorrhage along the tentorial edge left side cannot be excluded. D/t history of ICD and Pacemaker placement , will consult Cardiology for interrogation and rule out firing Check EEG to rule out seizure activity Questionable intracranial bleed Head CT with finding of Hemorrhage along the tentorial edge left side however cannot be excluded. Since the patient has a pacemaker and cannot have an MRI repeat CT scan in 24 hours would be of benefit to exclude hemorrhage. Continue to hold ASA Neurosurgery consultation History of CHF, hypertension and other chronic medical conditions Resume outpatient medications DVT prophylaxis: Chemical anti-prophylaxis is contraindicated
--- NOTE | 2017-09-22 17:31 | ECG ---
Date Performed: 09/22/2017 Time Performed: 07:59:27 PTAGE: 62 years EKG: Sinus rhythm WITH FIRST DEGREE AV BLOCK MARKED LEFT AXIS DEVIATION POSSIBLE ANTERIOR MYOCARDIAL INFARCTION ABNORM AL ECG NO PREVIOUS TRACING DOCTOR: Mason Bermeo Interpretating Date/Time 09/22/2017 17:29:53
[2017-09-22] MEDS: Lisinopril 20 MG Tablet PO SCH (19:18)
--- NOTE | 2017-09-22 21:41 | MG ---
cc: Milly Salas MD, Dalia MD EEG NUMBER [id number] REFERRING PHYSICIAN: Dr. Piper INDICATION: Photic stimulation only. Awake, drowsy, asleep study. CT showed multifocal old infarcts, admitted for seizures, history of stroke with spastic left hemiplegia, protein S deficiency. MEDICATIONS: Aspirin, Eliquis, Other medications. DESCRIPTION OF RECORD: The patient has an overall background rhythm of 9 Hz, 20-40 microvolts, symmetrical background overall. EKG looks sinus. Overall fairly well-organized background. Photic stimulation does elicit a driving response. IMPRESSION: Normal electroencephalogram without any epileptiform features. Clinical correlation. MD DEVAUGHN Peterson/ , 09:23 PM , 09:40 PM
[2017-09-23 03:55] LABS: Baso % (Auto) 0.3 % (0.0-2.0); Eos # (Auto) 0.1 th/mm3 (0.0-0.4); Eos % (Auto) 1.2 % (0.0-4.0); Hematocrit 43.5 % (39.0-51.0); Hemoglobin 14.5 gm/dL (13.0-17.0); Lymph # (Auto) 2.6 th/mm3 (1.0-4.8); Lymph % (Auto) 25.5 % (9.0-44.0); Mean Corpuscular HGB Conc 33.4 % (32.0-36.0); Mean Corpuscular Hemoglobin 29.7 pg (27.0-34.0); Mean Corpuscular Volume 88.8 fL (80.0-100.0); Mean Platelet Volume 8.6 fL (7.0-11.0); Mono # (Auto) 1.1 th/mm3 (0.0-0.9); Neut # (Auto) 6.3 th/mm3 (1.8-7.7); Platelet Count 200 th/mm3 (150-450); Red Blood Count 4.89 mil/mm3 (4.50-5.90); Red Cell Distribution Width 13.4 % (11.6-17.2); White Blood Count 10.1 th/mm3 (4.0-11.0)
[2017-09-23 04:12] LABS: Alanine Aminotransferase 22 U/L (12-78); Albumin 3.2 g/dL (3.4-5.0); Anion Gap 10 meq/L (5-15); Aspartate Aminotransferase 12 U/L (15-37); Blood Urea Nitrogen 16 mg/dL (7-18); Calcium 8.3 mg/dL (8.5-10.1); Chloride 109 meq/L (98-107); Glomerular Filtration Rate 75 mL/min (>89); Glucose,Random 110 mg/dL (74-106); Potassium 4.1 meq/L (3.5-5.1); Sodium 142 meq/L (136-145)
[2017-09-23 04:14] LABS: Alkaline Phosphatase 73 U/L (45-117); Total Protein 6.3 g/dL (6.4-8.2)
[2017-09-23] MEDS: Carvedilol 12.5 MG Tablet PO SCH ×2 (05:59→08:42)
[2017-09-23] MEDS: Lisinopril 20 MG Tablet PO SCH (08:42)
[2017-09-23] MEDS ORDERED: Spironolactone 25 MG Tablet PO SCH (09:00)
--- NOTE | 2017-09-23 11:46 | P.PN ---
Subjective Interval history: Follow-up syncope/questionable intracranial bleed September 23, 2017-patient seen and examined, no report of any syncopal episode since admission. Denies any chest pain or shortness of breath. Was seen by cardiology yesterday. Physical Exam Vital signs: Vital Signs 09/22/17 12:30 09/22/17 16:00 09/22/17 19:00 Temperature 99.1 F Pulse Rate 89 106 H 84 Respiratory Rate 20 Blood Pressure 128/67 Pulse Oximetry 97 09/22/17 20:00 09/22/17 21:00 09/22/17 22:00 Temperature Pulse Rate 90 96 H 79 Respiratory Rate 16 Blood Pressure Pulse Oximetry 09/22/17 23:00 09/23/17 00:00 09/23/17 01:00 Temperature Pulse Rate 96 H 94 H 88 Respiratory Rate Blood Pressure Pulse Oximetry 09/23/17 01:43 09/23/17 01:44 09/23/17 02:00 Temperature 98.8 F Pulse Rate 98 H 90 Respiratory Rate Blood Pressure 113/69 Pulse Oximetry 99 99 09/23/17 03:00 09/23/17 04:00 09/23/17 05:00 Temperature Pulse Rate 96 H 86 82 Respiratory Rate 16 Blood Pressure Pulse Oximetry 09/23/17 06:03 09/23/17 08:00 Temperature 98.2 F Pulse Rate 82 91 H Respiratory Rate 16 Blood Pressure 115/69 Pulse Oximetry 96 Intake & Output 09/22/17 09/23/17 09/23/17 18:59 06:59 18:59 Intake Total 240 / 240 Output Total 600 / 600 Balance -360 / -360 Weight 86.183 kg 89 kg 90.8 kg Intake: Oral 240 / 240 Output: Urine 600 / 600 Other: Weight On Admission 190 kg Narrative: GENERAL: NAD SKIN: Warm and dry. HEAD: Normocephalic. EYES: No scleral icterus. No injection or drainage. NECK: Supple, trachea midline. No JVD or lymphadenopathy. CARDIOVASCULAR: Regular rate and rhythm without murmurs, gallops, or rubs. RESPIRATORY: Breath sounds equal bilaterally. No accessory muscle use. GASTROINTESTINAL: Abdomen soft, non-tender, nondistended. MUSCULOSKELETAL: No cyanosis, or edema. BACK: Nontender without obvious deformity. No CVA tenderness. Results - Labs CBC & Chem 7: 09/23/17 03:27 09/23/17 03:27 Laboratory Results - last 24 hr 09/23/17 09/23/17 03:27 03:27 WBC 10.1 RBC 4.89 Hgb 14.5 Hct 43.5 MCV 88.8 MCH 29.7 MCHC 33.4 RDW 13.4 Plt Count 200 MPV 8.6 Neut % (Auto) 62.0 Lymph % (Auto) 25.5 Becker % (Auto) 11.0 H Eos % (Auto) 1.2 Baso % (Auto) 0.3 Neut # (Auto) 6.3 Lymph # (Auto) 2.6 Becker # (Auto) 1.1 H Eos # (Auto) 0.1 Baso # (Auto) 0.0 WBC Differential . Differential Comment Auto diff final Sodium 142 Potassium 4.1 Chloride 109 H Carbon Dioxide 23.0 Anion Gap 10 BUN 16 Creatinine 1.00 Estimated GFR 75 L Random Glucose 110 H Calcium 8.3 L Total Bilirubin 0.4 AST 12 L ALT 22 Alkaline Phosphatase 73 Total Protein 6.3 L D Albumin 3.2 L Assessment and Plan - Assessment (1) Syncope and collapse Code(s): R55 - Syncope and collapse Status: Resolved (2) Intracranial hemorrhage Code(s): I62.9 - Nontraumatic intracranial hemorrhage, unspecified Status: Acute (3) Loss of consciousness Code(s): R40.20 - Unspecified coma Status: Resolved (4) History of implantable cardioverter-defibrillator (ICD) placement Code(s): Z95.810 - Presence of automatic (implantable) cardiac defibrillator Status: Chronic (5) History of permanent cardiac pacemaker placement Code(s): Z95.0 - Presence of cardiac pacemaker Status: Chronic - Plan 62-year-old man with Syncope Loss of consciousness Head CT noted and review with finding of Hemorrhage along the tentorial edge left side cannot be excluded. D/t history of ICD and Pacemaker placement , Patient was seen and assessed by cardiology yesterday EEG pending to rule out seizure activity Questionable intracranial bleed Head CT with finding of Hemorrhage along the tentorial edge left side however cannot be excluded. Since the patient has a pacemaker and cannot have an MRI repeat Head CT scan today September 23, 2017 to exclude hemorrhage. Continue to hold ASA Neurosurgery consultation as needed History of CHF, hypertension and other chronic medical conditions Continue outpatient medications DVT prophylaxis: Chemical anti-prophylaxis is contraindicated
--- NOTE | 2017-09-23 11:50 | CT ---
EXAM DATE: 09/23/2017 11:47 AM EDT AGE/SEX: 62 years / Male INDICATIONS: Altered mental status. CLINICAL DATA: This is the patient's initial encounter. Patient reports that signs and symptoms have been present for 1 day and indicates a pain score of Nonresponsive. MEDICAL/SURGICAL HISTORY: Congestive heart failure. intracranial hemorrhage . defibrillator placem ent RADIATION DOSE: 36.62 CTDI (mGy) COMPARISON: [facility] [place], CT HEAD W/O CONTRAST, 09/22/2017. . TECHNIQUE: CT of the head without contrast. Using automated exposure control and adjustment of the mA and/or kV according to patient size, radiation dose was kept as low as reasonably achievable to ob tain optimal diagnostic quality images. DICOM format image data is available electronically for revi ew and comparison. FINDINGS: Cerebrum: The ventricles are normal for age. No evidence of midline shift, mass lesion, hemorrhage or acute infarction. No extraaxial fluid collections are seen. Posterior Fossa: The cerebellum and brainstem are intact. The 4th ventricle is midline. The cerebe llopontine angle is unremarkable. Extracranial: The visualized portion of the orbits is intact. Skull: The calvaria is intact. No evidence of skull fracture. CONCLUSION: 1. Negative CT Head non contrast. Electronically signed by: Hailey Gupta MD 09/23/2017 11:49 AM EDT
--- NOTE | 2017-09-23 16:18 | P.PNADD ---
Addendum to Inpatient Note Additional information: Repeat Head CT negative without any evidence of ICH, therefore will d/c the patient home Discharge patient to home Condition on discharge: Improved Regular Diet as tolerated Ad Yadira activity Rx written:None Follow-up with primary care physician in 1 week
--- NOTE | 2017-09-23 20:21 | MB ---
cc: Boogie Lu Vincent G DO DATE: 09/22/2017 REASON FOR CONSULTATION: Syncopal episode. HISTORY OF PRESENT ILLNESS: Bernard Shankar is a pleasant 62-year-old male, whom I see in the office and who presented to [facility] Emergency Room, although this morning . His was snoring and so he went out to the couch to sleep. In the morning, his came out and he had sat up and started noticing that he had a charley horse in his leg. He is on multiple diuretics and has been watching how much fluid he takes in and he felt that this was the cause of his cramping in his leg. He started rubbing his leg and then his told him that he should attempt to walk it off. He ended up walking into the other room and, at that time, he was trying to bend over and rub his leg. That is the last thing that he remembers. His heard a loud thud and went to the other room to find him on his back looking up at the ceiling. She said that she bent down and tried to rub his chest and wake him up a little bit and he finally came to She said we need to call an ambulance and he said no he felt fine and got up and walked to the bathroom to splash water on his face. Before the episode, during what he remembers of the episode and after the episode, he denies chest pain, shortness of breath or palpitations. His finally talked him into coming into the emergency room. CT of the head was done and there was a questionable artifact versus small bleed and so he was admitted to the hospital. I was asked to see him due to his syncopal episode. In seeing him, he denies chest pain, shortness of breath or palpitations. He is hemodynamically stable and relaxing comfortably in the bed. PAST MEDICAL HISTORY: 1. Hypertension. 2. Nonischemic cardiomyopathy felt to be viral illness. PAST SURGICAL HISTORY: 1. Cardiac catheterization (04/06/2016) showing nonischemic cardiomyopathy with no significant disease found. 2. Placement of a Med[employer]onic ICD (08/09/2016, model number [id number], serial number [id number]). 3. Bilateral carpal tunnel surgery (1970s). ALLERGIES: NO KNOWN DRUG ALLERGIES. MEDICATIONS: 1. Potassium 10 mEq daily. 2. Zyrtec 10 mg daily. 3. Lasix 20 mg as needed for weight gain with heart failure. 4. Coreg 12.5 mg b.i.d. 5. Aspirin 81 mg daily. 6. Lisinopril 20 mg daily 7. Spironolactone 12.5 mg daily. FAMILY HISTORY: He denies premature coronary artery disease or sudden cardiac within the family. SOCIAL HISTORY: The patient denies tobacco, alcohol or drug abuse. He will drink maybe 2 or 3 beers in a month. REVIEW OF SYSTEMS: Fourteen systems were reviewed including osteopathic. Pertinent positives and negatives as above, otherwise negative. PHYSICAL EXAMINATION: VITAL SIGNS: Temperature 99.0, heart rate 89, blood pressure 128/67, respirations 20, pulse oximetry 97% on room air. GENERAL: The patient appears well, in no acute distress. Alert, awake, oriented x3. HEENT: Extraocular muscles intact. Mucous membranes moist. NECK: Supple. No JVD at 45 degrees. No carotid bruits heard bilaterally. Carotid upstroke is brisk in nature. HEART: Regular rate and rhythm. Positive first and second heart sounds with no noted murmurs, gallops or rubs. LUNGS: Clear to auscultation bilaterally. No wheezes, rales or rhonchi. ABDOMEN: Soft, nontender, nondistended. No organomegaly noted. EXTREMITIES: Show no clubbing, cyanosis or edema. Femoral and distal pulses are intact bilaterally. NEUROLOGIC: No focal deficits. SKIN: Warm, dry and intact. OSTEOPATHIC: No kyphoscoliosis, lordosis or paraspinal tender points. LABORATORY DATA: Hemoglobin 15.2, hematocrit 45.2, platelets 227. Potassium 4.2, BUN 22, creatinine 1.19. Troponin less than 0.02. IMAGING STUDIES: CT of the head (09/22/2017): Hemorrhage along the tentorial edge, left side cannot be excluded. IMPRESSION: 1. Syncope of unknown cause. 2. Possible hemorrhage on CT scan along the left tentorial edge. 3. Nonischemic cardiomyopathy with history of automatic implantable cardioverter-defibrillator placement. 4. History of hypertension. RECOMMENDATIONS: 1. Mr. Shankar presented with a syncopal episode and it is difficult to ascertain exactly how this happened. 2. His implantable cardioverter-defibrillator has been interrogated and shows no abnormalities leading to syncope. 3. We will reevaluate his echocardiogram, although previous echocardiograms showed nothing in particular that would lead to syncope. 4. The other option could be that he was dehydrated from not keeping up with water, as he is very particular with his heart failure, this along with being on multiple heart failure medication for diuresis and then bending over to rub his leg. Usually with some type of episode like this, he would feel dizzy and not lose consciousness of what exactly happened during the episode, although this may still have been a cause if he had some amnestic effect from hitting his head. 5. Aspirin can be stopped until further evaluation of intracranial hemorrhage, as he has minimal coronary artery disease by previous cardiac catheterization. 6. Dr. Holliday will be available as needed over the weekend for any questions or concerns. Thank you for allowing me to see Bernard Shankar. If there are any questions, please do not hesitate to call. DO KENNY Chavarria/ , 06:54 PM , 07:56 PM
== END 2017-09-23 17:05 | disposition home or self-care (01) ==
LOC: NEPE 07:36 → NEDA 09:51 → INTOOBSV 09:51 → HCPC 12:51
PROVIDERS: ADMIT Hospitalist; ATTEND Hospitalist